=== PATIENT | male | born 1955 | race Caucasian/White ===

== ENCOUNTER 2016-09-23 08:03 | Emergency (ER) | payer OTHER ==
--- NOTE | 2016-09-23 10:25 | ER Document Report ---
ED General - General Chief Complaint: Leg Injury Stated Complaint: LEG PAIN TRAVEL OUTSIDE OF THE [place] IN LAST 30 DAYS: No - HPI Patient complains to provider of: left ankle pain Notes: Patient states came in today for evaluation of left lateral ankle pain. Patient certainly may have broken his ankle. Patient states yesterday was working at [employer]. Patient arrived in work boots ambulating on crutches. Patient states pain is only very severe when he ambulate with full weightbearing on his left leg. Patient denies any other injury denies any pain in the hip thigh knee or proximal tib-fib region. - Related Data Allergies/Adverse Reactions: Shellfish * [Shellfish] Allergy (Severe, Verified 09/23/16 08:15) Anaphylaxis iodine [Iodine] Allergy (Verified 09/23/16 08:15) Past Medical History - Social History Smoking Status: Unknown if Ever Smoked Chew tobacco use (# tins/day): No Frequency of alcohol use: None Drug Abuse: None Family History: Reviewed & Not Pertinent Patient has suicidal ideation: No Patient has homicidal ideation: No - Past Medical History Cardiac Medical History: Reports: Hx Hypercholesterolemia, Hx Pulmonary Embolism GI Medical History: Reports: Hx Gastroesophageal Reflux Disease Past Surgical History: Reports: Hx Orthopedic Surgery - 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 saw accident. - Immunizations Hx Diphtheria, Pertussis, Tetanus Vaccination: Yes Review of Systems - Review of Systems Constitutional: No symptoms reported EENT: No symptoms reported Cardiovascular: No symptoms reported Respiratory: No symptoms reported Gastrointestinal: No symptoms reported Genitourinary: No symptoms reported Male Genitourinary: No symptoms reported Musculoskeletal: Other - Left lateral ankle pain Skin: No symptoms reported Hematologic/Lymphatic: No symptoms reported Neurological/Psychological: No symptoms reported Physical Exam - Vital signs Vitals: Temp Pulse Resp BP Pulse Ox 97.5 F 65 16 117/62 96 09/23/16 08:15 09/23/16 08:15 09/23/16 08:15 09/23/16 08:15 09/23/16 08:15 Interpretation: Normal - General General appearance: Appears well, Alert - HEENT Head: Normocephalic, Atraumatic Eyes: Normal Pupils: PERRL - Respiratory Respiratory status: No respiratory distress Chest status: Nontender Breath sounds: Normal Chest palpation: Normal - Cardiovascular Rhythm: Regular Heart sounds: Normal auscultation Murmur: No - Abdominal Inspection: Normal Distension: No distension Bowel sounds: Normal Tenderness: Nontender Organomegaly: No organomegaly - Back Back: Normal, Nontender - Extremities General upper extremity: Nontender, Tender - Tenderness to palpation along the left lateral ankle, Normal color, Normal temperature. No: Normal ROM - Decreased range of motion of blood arrival due to pain General lower extremity: Normal inspection, Nontender, Normal color, Normal ROM , Normal temperature, Normal weight bearing. No: Adeola's sign - Neurological Neuro grossly intact: Yes Cognition: Normal Orientation: AAOx4 [place] Coma Scale Eye Opening: Spontaneous [place] Coma Scale Verbal: Oriented [place] Coma Scale Motor: Obeys Commands Berenice Coma Scale Total: 15 Speech: Normal Motor strength normal: LUE, RUE, LLE, RLE Sensory: Normal - Psychological Associated symptoms: Normal affect, Normal mood - Skin Skin Temperature: Warm Skin Moisture: Dry Skin Color: Normal Course - Re-evaluation Re-evalutation: 09/23/16 11:40 Patient has a distal fibula fracture. Patient will placed in a ankle stirrup. Patient's follow-up orthopedics. Patient discharged home. - Vital Signs Vital signs: Temp Pulse Resp BP Pulse Ox 97.5 F 65 16 117/62 96 09/23/16 08:15 09/23/16 08:15 09/23/16 08:20 09/23/16 08:15 09/23/16 08:15 Discharge - Discharge Clinical Impression: Left fibular fracture Qualifiers: Encounter type: initial encounter Fibula location: distal Fracture type: closed Fracture morphology: unspecified fracture morphology Qualified Code(s): S82.832A - Other fracture of upper and lower end of left fibula, initial encounter for closed fracture Condition: Good Disposition: HOME, SELF-CARE Instructions: Fracture of Distal Fibula ([facility]), Oral Narcotic Medication ([facility]), Ice & Elevation ([facility]) Additional Instructions: He may take pain medication for severe pain as prescribed. Return to ER symptoms worsen. Continue to take Tylenol Motrin for her pain ice and elevate. If you do take the narcotic pain medication prescribed will recommend taking a stool softener to avoid constipation Follow-up with orthopedic provided Dr. Bree Fraser [id number] [facility] unit [address] [place] [id number] Prescriptions: Hydrocodone Bit/Acetaminophen [Hydrocodon-Acetaminophen 5-325] 1 each PO Q6 #20 tablet Forms: Return to Work Referrals: LAVONNE HENRY MD [Primary Care Provider] - Follow up as needed LEAH LYNCH MD [ACTIVE STAFF] - Follow up as needed
[2016-09-23 11:47] VITALS: BP 120/63
== END 2016-09-23 10:55 | disposition home or self-care (01) ==
LOC: ER 08:03
DX: S82.832A Other fracture of upper and lower end of left fibula, initial encounter for closed fracture (principal); X58.XXXA Exposure to other specified factors, initial encounter; E78.00 Pure hypercholesterolemia, unspecified; Z86.711 Personal history of pulmonary embolism; Z91.013 Allergy to seafood
CPT/HCPCS: 99283; 73610; L1902

== ENCOUNTER 2016-10-09 16:31 | Inpatient (IN) | payer OTHER ==
[2016-10-09] MEDS ORDERED: LEVETIRACETAM 1000 MG/NACL-ISO 100 ML IV ONE ×2 (16:37→17:29)
[2016-10-09] MEDS ORDERED: LORAZEPAM INJ 2 MG/1 ML VIAL IV ONE (17:29)
[2016-10-09] MEDS ORDERED: NORMAL SALINE 1000 ML 1,000 ML IV ONE ×3 (17:30→21:31)
--- NOTE | 2016-10-09 17:54 | ER Document Report ---
ED Seizure - General Chief Complaint: Seizure Stated Complaint: SEISURE Notes: Pt presents via EMS found seizing outside. Old pill bottle in pocket is 3 day supply of Keppra from May 2016. Pt wearing a walking boot on left foot. He is unable to provide hx. EMS states they gave 4mg valium, 3 mg versed with only temporary improvement in seizure activity. - Related Data Allergies/Adverse Reactions: Shellfish * [Shellfish] Allergy (Severe, Verified 09/23/16 08:15) Anaphylaxis iodine [Iodine] Allergy (Verified 09/23/16 08:15) Past Medical History - Social History Smoking Status: Unknown if Ever Smoked Family History: Reviewed & Not Pertinent - Past Medical History Cardiac Medical History: Reports: Hx Hypercholesterolemia, Hx Pulmonary Embolism Renal/ Medical History: Denies: Hx Peritoneal Dialysis - unable to answer questions GI Medical History: Reports: Hx Gastroesophageal Reflux Disease Past Surgical History: Reports: Hx Orthopedic Surgery - 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 saw accident. - Immunizations Hx Diphtheria, Pertussis, Tetanus Vaccination: Yes Review of Systems - Review of Systems -: Yes ROS unobtainable due to patient's medical condition Physical Exam - Vital signs Vitals: Resp BP Pulse Ox 15 112/79 93 10/09/16 16:35 10/09/16 16:35 10/09/16 16:35 - General In distress: Mild Notes: presents actively seizing - HEENT Head: Other - old crani scar Extraocular movements intact: No - gaze deviation to the right Pupils: Pinpoint Mucous membranes: Normal Pharynx: Normal Neck: No: Lymphadenopathy, Meningismus, Subcutaneous emphysema - Respiratory Respiratory status: Tachypnea Breath sounds: Rhonchi - Cardiovascular Rhythm: Regular, Tachycardia - Abdominal Inspection: Normal Distension: No distension Tenderness: Nontender - Back Back: Normal - Extremities General upper extremity: Normal inspection General lower extremity: Normal strength - Skin Skin Temperature: Warm Skin Moisture: Dry Skin Color: Normal Course - Re-evaluation Re-evalutation: 10/09/16 17:53 Patient arrived by EMS, actively seizing. They had given 4 mg of Valium as well as 3 mg of Versed with only temporary abatement in the seizure activity. I gave another 3 mg total of Ativan as well as 100 of Keppra IV. He was bagged and had nasal trumpet and to maintain airway and oxygenation. This did seem to stop his seizure activity however he was noted to be flaccid on the left side. Head CT has been ordered for possible stroke versus David's paralysis. 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 Patient now following basic commands. He is still weak on the left side. Would not be a candidate for TPA due to unclear timeline of events, and hx of craniotomy in 2016. Pt has likely aspirated but is now protecting airway. I have discussed pt with Dr. Zamora who will admit. 10/09/16 19:51 - Vital Signs Vital signs: Temp Pulse Resp BP Pulse Ox 100.6 F H 123 H 22 H 112/87 H 96 10/09/16 17:09 10/09/16 17:25 10/09/16 18:51 10/09/16 18:51 10/09/16 18:51 - Laboratory Result Diagrams: 10/09/16 16:36 10/09/16 16:36 Laboratory results interpreted by me: 10/09/16 10/09/16 10/09/16 16:36 16:36 16:36 WBC 14.1 H MCHC 31.0 L RDW 14.4 H Seg Neutrophils % 81.0 H Absolute Neutrophils 11.4 H APTT 22.9 L Total Protein 8.3 H Urine Protein Urine Ketones Urine Blood Urine Nitrite Ur Leukocyte Esterase 10/09/16 18:36 WBC MCHC RDW Seg Neutrophils % Absolute Neutrophils APTT Total Protein Urine Protein 30 H Urine Ketones TRACE H Urine Blood LARGE H Urine Nitrite POSITIVE H Ur Leukocyte Esterase SMALL H - Diagnostic Test Radiology reviewed: Reports reviewed - chronic changes related to TBI Discharge - Discharge Clinical Impression: Seizure, David's paralysis Aspiration into respiratory tract Qualifiers: Encounter type: initial encounter Qualified Code(s): T17.908A - Unspecified foreign body in respiratory tract, part unspecified causing other injury, initial encounter Condition: Stable Disposition: ADMITTED INPATIENT Admitting Provider: Librado zamora Unit Admitted: [facility]
[2016-10-09 18:36] LABS: ABSOLUTE MONOCYTES (AUTO) 0.6 10^3/uL (0.1-1.4); ABSOLUTE NEUT (AUTO) 11.4 10^3/uL (1.7-8.2); BASOPHILS % (AUTO) 0.3 % (0-2); EOSINOPHILS % (AUTO) 0.3 % (0-6); HEMATOCRIT 45.3 % (37.9-51.0); HGB HCT DIFFERENCE -3.3; LYMPHOCYTES % (AUTO) 14.1 % (13-45); MEAN CORPUSCULAR HEMOGLOBIN 28.8 pg (27.0-33.4); MEAN CORPUSCULAR VOLUME 93 fl (80-97); MONOCYTES % (AUTO) 4.3 % (3-13); RED BLOOD COUNT 4.88 10^6/uL (4.35-5.55); RED CELL DISTRIBUTION WIDTH 14.4 % (11.5-14.0); WHITE BLOOD COUNT 14.1 10^3/uL (4.0-10.5)
[2016-10-09 18:43] LABS: PROTHROMBIN TIME 12.4 SEC (11.4-15.4)
[2016-10-09 18:44] LABS: PARTIAL THROMBOPLASTIN TIME 22.9 SEC (23.5-35.8)
[2016-10-09 18:51] LABS: ALANINE AMINOTRANSFERASE 31 U/L (21-72); ALBUMIN 4.7 g/dL (3.5-5.0); ALCOHOL < 10 mg/dL (NONE DETECTED); ALKALINE PHOSPHATASE 106 U/L (38-126); ANION GAP 19 (5-19); ASPARTATE AMINO TRANSFERASE 56 U/L (17-59); BILIRUBIN,TOTAL 0.6 mg/dL (0.2-1.3); BLOOD UREA NITROGEN 12 mg/dL (7-20); CALCIUM 9.3 mg/dL (8.4-10.2); CARBON DIOXIDE 23 mmol/L (22-30); CHLORIDE 103 mmol/L (98-107); CREATININE RESULT 1.19 mg/dL (0.52-1.25); GLUCOSE 99 mg/dL (75-110); POTASSIUM 4.2 mmol/L (3.6-5.0); SODIUM 144.5 mmol/L (137-145); TOTAL PROTEIN 8.3 g/dL (6.3-8.2)
[2016-10-09 18:55] LABS: APPEARANCE,URINE SLIGHTLY-CLOUDY; BILIRUBIN,URINE NEGATIVE (NEGATIVE); GLUCOSE, URINE NEGATIVE (NEGATIVE); KETONES,URINE TRACE mg/dL (NEGATIVE); LEUKOCYTE ESTERASE,URINE SMALL (NEGATIVE); NITRITE,URINE POSITIVE (NEGATIVE); PROTEIN,URINE 30 mg/dL (NEGATIVE); URINE SPECIFIC GRAVITY 1.013; UROBILINOGEN,URINE NEGATIVE mg/dL (<2.0)
[2016-10-09 19:10] LABS: URINE BARBITURATES SCREEN NEGATIVE; URINE METHADONE SCREEN NEGATIVE; URINE PHENCYCLIDINE SCREEN NEGATIVE
[2016-10-09] MEDS ORDERED: LORAZEPAM INJ 2 MG/1 ML VIAL IV PRN (21:31)
[2016-10-09] MEDS ORDERED: LEVETIRACETAM 500 MG TABLET PO SCH (22:00)
[2016-10-09] MEDS: LEVETIRACETAM 1000 MG/NACL-ISO 100 ML IV SCH (22:00)
[2016-10-09] MEDS: HEPARIN SOD (PORCINE) 5,000 UNIT/ML 1 ML SYRINGE SUBCUT SCH (22:08)
[2016-10-09] MEDS: LEVOFLOXACIN 750 MG/D5W RTU 750 MG/150 ML RTUPB IV SCH (23:27)
[2016-10-10] MEDS: IPRATROPIUM/ALBUTEROL 0.5-2.5 MG/3 ML AMPUL NEB SCH ×3 (00:07→16:29)
--- NOTE | 2016-10-10 04:04 | PDOC H&P ---
History of Present Illness Admission Date/PCP: 10/09/16 20:02 Patient complains of: Seizure History of Present Illness: ALEXANDRA NORRIS is a 61 year old male with a complex past medical history including bilateral pulmonary emboli subsequently sustaining traumatic brain injury and intracranial hemorrhage with residual deficits of left-sided weakness and seizure disorder. Found by EMS disheveled an actively seizing which persisted approximately 30 minutes despite 4mg of IV Valium, 3mg of IV Versed, 2 mg IV Ativan and 1 g IV Keppra. Remarkably he is without obvious acute injury although post ictal he is protecting his airway with a strong gag reflex, though minimally verbal and following commands. Workup in the emergency room reveals a fever of 100.6 and leukocytosis of 14,000. CT head and chest x-ray are unremarkable, and is referred to the hospitalist for admission. Past Medical History Cardiac Medical History: Reports: Hyperlipidema, Pulmonary Embolism Neurological Medical History: Reports: Seizures, Other - Traumatic brain injury , intracranial hemorrhage, left-sided weakness GI Medical History: Reports: Gastroesophageal Reflux Disease Past Surgical History Past Surgical History: Reports: Orthopedic Surgery - 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 saw accident., Other - Evidence a craniotomy Social History Information Source: [facility] Records Smoking Status: Unknown if Ever Smoked Frequency of Alcohol Use: None Hx Recreational Drug Use: No Hx Prescription Drug Abuse: No - Advance Directive Resuscitation Status: Full Code Family History Family History: Reviewed & Not Pertinent, Other - Unable to obtain Parental Family History Reviewed: Yes Children Family History Reviewed: Yes Sibling(s) Family History Reviewed.: Yes Medication/Allergy Home Medications: Omeprazole 20 mg PO DAILY 07/10/13 Warfarin Sodium [Coumadin 5 mg Tablet] 5 mg PO QHS #60 tablet 07/14/13 Ondansetron [Zofran Odt 4 mg Tablet] 1 - 2 tab PO Q4H PRN #15 tab.rapdis Oxycodone HCl/Acetaminophen [Percocet 5-325 mg Tablet] 1 - 2 tab PO Q4H PRN #15 tablet 06/26/14 Tamsulosin HCl [Flomax 0.4 mg Cap.sr] 0.4 mg PO DAILY #7 cap.sr.24h 06/26/14 Oxycodone HCl/Acetaminophen [Percocet 5-325 mg Tablet] 1 tab PO QID #15 tablet 07/22/15 Levetiracetam [Keppra 500 mg Tablet] 500 mg PO Q12 #60 tablet 04/03/16 Hydrocodone Bit/Acetaminophen [Hydrocodon-Acetaminophen 5-325] 1 each PO Q6 #20 tablet 09/23/16 Allergies/Adverse Reactions: Shellfish * [Shellfish] Allergy (Severe, Verified 09/23/16 08:15) Anaphylaxis iodine [Iodine] Allergy (Verified 09/23/16 08:15) Review of Systems ROS unobtainable: Due to mental status Physical Exam Vital Signs: Temp Pulse Resp BP Pulse Ox 97.7 F 108 H 24 H 128/93 H 96 10/10/16 01:14 10/10/16 02:33 10/10/16 02:33 10/10/16 02:33 10/10/16 02:33 General appearance: PRESENT: cooperative, disheveled, mild distress Head exam: PRESENT: other - No evidence of acute injury but history of craniotomy Eye exam: PRESENT: conjunctiva pink, EOMI, PERRLA. ABSENT: scleral icterus Ear exam: PRESENT: normal external ear exam Mouth exam: PRESENT: dry mucosa, neck supple, tongue midline. ABSENT: laceration Teeth exam: PRESENT: dental caries Neck exam: ABSENT: carotid bruit, JVD, lymphadenopathy, meningismus, tenderness , tracheal deviation Respiratory exam: PRESENT: accessory muscle use, rhonchi, symmetrical, tachypnea. ABSENT: retraction Cardiovascular exam: PRESENT: RRR. ABSENT: diastolic murmur, rubs, systolic murmur Pulses: PRESENT: normal dorsalis pedis pul Vascular exam: PRESENT: normal capillary refill GI/Abdominal exam: PRESENT: normal bowel sounds, soft. ABSENT: distended, guarding, mass, organolmegaly, rebound, tenderness Rectal exam: PRESENT: deferred Extremities exam: PRESENT: full ROM. ABSENT: calf tenderness, clubbing, pedal edema Musculoskeletal exam: PRESENT: other - Left-sided flaccid Neurological exam: PRESENT: altered, oriented to person, CN II-XII grossly intact. ABSENT: oriented to time, oriented to situation Psychiatric exam: PRESENT: flat affect Focused psych exam: PRESENT: other - Sedated Skin exam: PRESENT: dry, intact, warm. ABSENT: cyanosis, rash Results Impressions: Head CT 10/09/16 17:30 IMPRESSION: Mild chronic appearing changes as noted above. There are areas of apparent meningeal thickening in a couple focal calcifications in the right parietal region which appears stable when correlated with the previous study and is most consistent with the sequela of a subdural hematoma which was identified on the study of July 2015. There is some effacement of the cortical sulci in the right cerebral hemisphere as compared to the left which appears slightly more pronounced when correlated with the previous study. MRI may be of value for further evaluation. The previously described areas of encephalomalacia in the right anterior temporal lobe and left inferior frontal lobe appears stable. Other findings as noted above Chest X-Ray 10/09/16 19:42 IMPRESSION: NO ACUTE RADIOGRAPHIC FINDING IN THE CHEST. Assessment & Plan - Diagnosis (1) Seizure Is this a current diagnosis for this admission?: YesPlan: Prolonged seizure complicated by history of traumatic brain injury with intracranial hemorrhage, continue IV Keppra when necessary Ativan and supportive measures. (2) Aspiration into respiratory tract Qualifiers: Encounter type: initial encounter Qualified Code(s): T17.908A - Unspecified foreign body in respiratory tract, part unspecified causing other injury, initial encounter Is this a current diagnosis for this admission?: YesPlan: Patient has upper airway rhonchi that are proving difficult for the patient clear has a strong gag reflex with suctioning I'm concerned for aspiration and he will receive empiric antibiotics, albuterol Atrovent nebulizer, aspiration precautions and evaluation with chest x-ray (3) David's paralysis Is this a current diagnosis for this admission?: YesPlan: Multifactorial left-sided weakness clearly a record of residual left-sided weakness from traumatic brain injury, though I also suspect a David's paralysis as he has significant musculature without atrophy on the left side. Physical therapy evaluation considered - Time Time Spent: 50 to 70 Minutes
[2016-10-10 04:26] LABS: HEMATOCRIT 39.7 % (37.9-51.0); HEMOGLOBIN 12.9 g/dL (13.5-17.0); MEAN CORPUSCULAR HEMOGLOBIN 29.2 pg (27.0-33.4); MEAN CORPUSCULAR HGB CONC 32.4 g/dL (32.0-36.0); MEAN CORPUSCULAR VOLUME 90 fl (80-97); RED BLOOD COUNT 4.41 10^6/uL (4.35-5.55); RED CELL DISTRIBUTION WIDTH 13.9 % (11.5-14.0); WHITE BLOOD COUNT 13.8 10^3/uL (4.0-10.5)
[2016-10-10 04:49] LABS: ANION GAP 12 (5-19); BLOOD UREA NITROGEN 13 mg/dL (7-20); CALCIUM 9.3 mg/dL (8.4-10.2); CARBON DIOXIDE 22 mmol/L (22-30); CHLORIDE 107 mmol/L (98-107); CREATININE RESULT 0.81 mg/dL (0.52-1.25); GLUCOSE 132 mg/dL (75-110); POTASSIUM 4.6 mmol/L (3.6-5.0); SODIUM 141.2 mmol/L (137-145)
[2016-10-10 04:52] LABS: BAND NEUTROPHILS % (MANUAL) 3 % (3-5); BASOPHILS % (MANUAL) 0 % (0-2); EOSINOPHILS % (MANUAL) 0 % (0-6); LYMPHOCYTES % (MANUAL) 4 % (13-45); TOTAL CELLS COUNTED 100
[2016-10-10 04:53] LABS: RBC MORPHOLOGY COMMENT NORMO-CYTIC/CHROMIC
[2016-10-10] MEDS: HEPARIN SOD (PORCINE) 5,000 UNIT/ML 1 ML SYRINGE SUBCUT SCH ×3 (05:37→21:50)
--- NOTE | 2016-10-10 09:17 | PDOC PROGRESS REPORT ---
Subjective Progress Note for:: 10/10/16 Subjective:: Normal reported seizures. Patient does not verbalize so much. No reported respiratory distress but remain on the facemask. No nausea or vomiting. No temperature spikes. No reported diarrhea or any urinary incontinence. Physical Exam Vital Signs: Temp Pulse Resp BP Pulse Ox 99.8 F 109 H 26 H 129/95 H 93 10/10/16 08:50 10/10/16 08:00 10/10/16 08:50 10/10/16 08:50 10/10/16 08:50 Intake & Output 10/09/16 10/10/16 10/11/16 06:59 06:59 06:59 Output Total 950 Balance -950 General appearance: PRESENT: no acute distress, other - Calm, does not verbalize much at this time Head exam: PRESENT: normocephalic Eye exam: PRESENT: conjunctiva pink. ABSENT: scleral icterus Mouth exam: PRESENT: moist, neck supple Neck exam: ABSENT: carotid bruit, JVD Respiratory exam: PRESENT: rhonchi - Right side. ABSENT: wheezes Cardiovascular exam: PRESENT: RRR. ABSENT: gallop GI/Abdominal exam: PRESENT: hypoactive bowel sounds, soft. ABSENT: distended, tenderness Extremities exam: ABSENT: pedal edema Psychiatric exam: ABSENT: agitated Focused psych exam: ABSENT: restlessness Skin exam: PRESENT: dry, warm. ABSENT: cyanosis Results Laboratory Results: 10/10/16 03:37 10/10/16 03:37 10/10/16 10/10/16 03:37 03:37 WBC 13.8 H RBC 4.41 Hgb 12.9 L Hct 39.7 MCV 90 MCH 29.2 MCHC 32.4 RDW 13.9 Plt Count 262 Seg Neutrophils % Not Reportable Lymphocytes % Not Reportable Monocytes % Not Reportable Eosinophils % Not Reportable Basophils % Not Reportable Absolute Neutrophils Not Reportable Absolute Lymphocytes Not Reportable Absolute Monocytes Not Reportable Absolute Eosinophils Not Reportable Absolute Basophils Not Reportable Sodium 141.2 Potassium 4.6 Chloride 107 Carbon Dioxide 22 Anion Gap 12 BUN 13 Creatinine 0.81 Est GFR ( Amer) > 60 Est GFR (Non-Af Amer) > 60 Glucose 132 H Calcium 9.3 Impressions: Head CT 10/09/16 17:30 IMPRESSION: Mild chronic appearing changes as noted above. There are areas of apparent meningeal thickening in a couple focal calcifications in the right parietal region which appears stable when correlated with the previous study and is most consistent with the sequela of a subdural hematoma which was identified on the study of July 2015. There is some effacement of the cortical sulci in the right cerebral hemisphere as compared to the left which appears slightly more pronounced when correlated with the previous study. MRI may be of value for further evaluation. The previously described areas of encephalomalacia in the right anterior temporal lobe and left inferior frontal lobe appears stable. Other findings as noted above Chest X-Ray 10/09/16 19:42 IMPRESSION: NO ACUTE RADIOGRAPHIC FINDING IN THE CHEST. Assessment & Plan - Diagnosis (1) Seizure Is this a current diagnosis for this admission?: Yes (2) UTI (urinary tract infection) Qualifiers: Urinary tract infection type: site unspecified Hematuria presence: without hematuria Qualified Code(s): N39.0 - Urinary tract infection, site not specified Is this a current diagnosis for this admission?: Yes (3) Chronic subdural hematoma Is this a current diagnosis for this admission?: Yes (4) Hyperlipidemia Qualifiers: Hyperlipidemia type: unspecified Qualified Code(s): E78.5 - Hyperlipidemia, unspecified Is this a current diagnosis for this admission?: Yes (5) GERD (gastroesophageal reflux disease) Qualifiers: Esophagitis presence: without esophagitis Qualified Code(s): K21.9 - Gastro-esophageal reflux disease without esophagitis Is this a current diagnosis for this admission?: Yes (6) History of pulmonary embolism Is this a current diagnosis for this admission?: Yes (7) History of intracranial hemorrhage Is this a current diagnosis for this admission?: Yes (8) Traumatic brain injury Qualifiers: Encounter type: sequela Loss of consciousness presence/duration: with LOC of unspecified duration Qualified Code(s): S06.9X9S - Unspecified intracranial injury with loss of consciousness of unspecified duration, sequela Is this a current diagnosis for this admission?: Yes - Time Time Spent with patient: 25-34 minutes - Plan Summary Plan Summary: Continue gentle hydration. Begin antibiotic. Follow urine culture. Recheck chest x-ray in the morning, may have aspirated. Continue oxygen supplementation. Patient supposed to be on warfarin at home by the PT/INR is normal likely may have been discontinued or not taking the medication. Continue intravenous Keppra for now.
[2016-10-10] MEDS: TAMSULOSIN HCL 0.4 MG CAP.SR.24H PO SCH (11:41)
[2016-10-10] MEDS: DOCUSATE SODIUM 100 MG CAPSULE PO SCH ×2 (11:41→17:57)
--- NOTE | 2016-10-10 11:43 | EKG REPORT ---
SEVERITY:- OTHERWISE NORMAL ECG - SINUS TACHYCARDIA : Confirmed by: Delmi Dockery MD 10-Oct-2016 11:42:22
[2016-10-10] MEDS: ACETAMINOPHEN 650 MG SUPP.RECT PR PRN (11:59)
[2016-10-10] MEDS ORDERED: LEVETIRACETAM 1000 MG/NACL-ISO 1,000 MG/100 ML RTUPB IV ONE (12:00)
[2016-10-10] MEDS: LEVETIRACETAM 1000 MG/NACL-ISO 100 ML IV SCH ×2 (12:17→21:50)
--- NOTE | 2016-10-10 16:22 | Physician Advisory Note ---
Physician Advisor ProgressNote .: Pursuant to the plan for [facility], I have reviewed the medical record for this patient. Physician Advisor Statement: Possible documentation opportunities if attending agrees: 1.~ ? - "chronic Lt hemiparesis, due to ____" 2.~ "SIRS, present on admission due to aspiration pneumonitis + prolonged seizure" [or ....] - vs. "possible sepsis, present on admission, due to aspiration pneumonia, despite neg BCs, ruled out/in" 3.~ If pt develops increased work of breathing along with hypoxemia, please consider documenting details w/"Acute Respiratory Failure" dx. As always, if concerned about any unstable VS or abnormal labs,~ please comment on them & note what doing about them, & ~ please document each day the potential clinical problems you are concerned could occur if pt not kept in hospital for tx at this time. Status:~ Pt w/ TBI, past ICH w/resid lt hemiparesis & sz d/o, past bilat PE, who came in 10/09 PM with prolonged sz, noted at time of H&P to have dry mucosae, mild distress, dental caries, accessory muscle use, tachypnea, rhonchi, & was sedated , w/T100.6, HR 108, RR24, WBC 14. CT & CXR neg, but timing & decreased circulating volume could have been why neg then. Attending concerned for aspiration pneumonitis vs aspir PNA. Pt also w/anemia, hgb 12.9, (+) U/A. Attending appropriately ordered IV KEppra, prn ativan, abx, nebs, aspir prec.s. After 1 MN of care, pt has fever w/Tmax today so far 101.1, with persistent tachycardia >100, persistent tachypnea mid-20s, & episodes of hypoxemia as low as 89% on RA. Still significant leukocytosis. Pt is most certainly not hemodynamically stable for d/c today, clearly needs to continue IV abx with f/u cx & monitoring of response, f/u CXR, O2, etc. IVF may help bring out CXR findings as well as hydrate. Tx in inpatient hospital setting medically reasonable & necessary to protect pt' s health, safety, & medical condition. Appropriate for Inpt status. Thanks for your help with documentation accuracy/specificity improvement! Korina Whipple MD [facility] Physician Advisor, Fellow of Hospital Medicine
--- NOTE | 2016-10-10 16:41 | PDOC TRANSFER SUMMARY ---
General Admission Date/PCP: 10/09/16 21:23 Admission Date: 10/09/16 Transfer Date: 10/10/16 Accepting Facility: [facility] Accepting Physician: Dr. Noah Carson Resuscitation Status: Full Code - Transfer Diagnosis (1) Seizure Is this a current diagnosis for this admission?: Yes (2) UTI (urinary tract infection) Is this a current diagnosis for this admission?: Yes (3) Chronic subdural hematoma Is this a current diagnosis for this admission?: Yes (4) Hyperlipidemia Is this a current diagnosis for this admission?: Yes (5) GERD (gastroesophageal reflux disease) Is this a current diagnosis for this admission?: Yes (6) History of pulmonary embolism Is this a current diagnosis for this admission?: Yes (7) History of intracranial hemorrhage Is this a current diagnosis for this admission?: Yes (8) Traumatic brain injury Is this a current diagnosis for this admission?: Yes - Transfer Medications Transfer Medications: Current Medications Acetaminophen (Tylenol 650 Mg Supp) 650 mg MA Q4HP PRN Stop: 11/09/16 11:38 Last Admin: 10/10/16 11:59 Dose: 650 mg Albuterol/Ipratropium (Duoneb 3 Ml Ampul) 3 ml NEB RTQ8 GISEL Stop: 11/09/16 00:00 Last Admin: 10/10/16 16:29 Dose: 3 ml Docusate Sodium (Colace 100 Mg Capsule) 100 mg PO BID GISEL Stop: 11/09/16 09:59 Last Admin: 10/10/16 11:41 Dose: Not Given Heparin Sodium (Porcine) (Heparin Inj 5,000 Units/Ml 1 Ml Syringe) 5,000 unit SUBCUT Q8 GISEL Stop: 11/08/16 21:59 Last Admin: 10/10/16 05:37 Dose: 5,000 unit Levetiracetam (Keppra Rtu 1000 Mg/Nacl-Iso 100 Ml Premix) 100 mls @ 400 mls/hr IV Q12 GISEL Stop: 11/08/16 21:59 Last Admin: 10/10/16 12:17 Dose: Not Given Levofloxacin/Dextrose (Levaquin Rtu 750 Mg/D5w 150 Ml Premix) 750 mg in 150 mls @ 100 mls/hr IV QHS GISEL Stop: 10/16/16 21:59 Last Admin: 10/09/16 23:27 Dose: 150 ml Clindamycin Phosphate/Dextrose (Cleocin Rtu 600 Mg/D5w 50 Ml Premix) 50 mls @ 50 mls/hr IV Q8 [facility] Stop: 10/17/16 16:44 Lorazepam (Ativan Inj 2 Mg/1 Ml Vial) 2 mg IV Q2HP PRN PRN Reason: SEIZURES Stop: 10/16/16 21:30 Tamsulosin HCl (Flomax 0.4 Mg Cap.Sr) 0.4 mg PO DAILY GISEL Stop: 11/09/16 09:59 Last Admin: 10/10/16 11:41 Dose: Not Given Aspirin 300 mg suppository daily. - Allergies Allergies/Adverse Reactions: Shellfish * [Shellfish] Allergy (Severe, Verified 09/23/16 08:15) Anaphylaxis iodine [Iodine] Allergy (Verified 09/23/16 08:15) - Diet/Activity Discharge Diet: Other (Comments) - NPO except medications. Hospital Course Hospital Course: The patient was admitted to telemetry. The patient was begun on intravenous Keppra 1000 mg IV twice a day. The patient received multiple doses of benzodiazepine in the field and in the emergency room. He started to develop fever and clindamycin added to the patient's antibiotics intravenously. Chest x -ray however did not reveal any infiltrates. His lung sounds however are coarse. His mental status improved with no seizures however post ictal state is prolonged. Family is concerned and requesting patient be transferred to [facility] as he has PROCEDURES and records at the facility. An EEG was performed but result is pending. There is no neurologist wardrobe image consultant for the hospital. At this point, [facility] was contacted, Dr. Carson from the hospitalist service responded and accepted the patient. The patient mental status improved however still with significant weakness reported with swallowing difficulty. MRI of the brain was obtained and reportedly showing a recent stroke with associated edema. Speech therapy evaluated the patient and MBS was done, patient high risk for aspiration and recommended alternate means of feeding at this time. A nasogastric tube was therefore placed. Carotid Doppler showed no hemodynamically significant stenosis and echocardiogram was done but result is PND. Follow up chest x-ray did confirm the infiltrate suggestive of aspiration. His urine culture grew Klebsiella. The patient has been on antibiotic intravenously to cover for both UTI and aspiration. Antiplatelet therapy was begun as well. Physical Exam Vital Signs: Temp Pulse Resp BP Pulse Ox 100.3 F 110 H 29 H 134/92 H 93 10/10/16 15:01 10/10/16 12:00 10/10/16 15:01 10/10/16 15:01 10/10/16 15:07 Intake & Output 10/09/16 10/10/16 10/11/16 06:59 06:59 06:59 Output Total 950 Balance -950 General appearance: PRESENT: no acute distress, other - On facemask oxygen supplementation Head exam: PRESENT: normocephalic Eye exam: PRESENT: EOMI - Seems to be intact. ABSENT: nystagmus Ear exam: PRESENT: normal external ear exam. ABSENT: drainage Mouth exam: PRESENT: moist, neck supple Neck exam: ABSENT: JVD Respiratory exam: PRESENT: rhonchi - Right more than the left. ABSENT: wheezes Cardiovascular exam: PRESENT: RRR. ABSENT: gallop GI/Abdominal exam: PRESENT: normal bowel sounds, soft. ABSENT: distended, tenderness Extremities exam: ABSENT: pedal edema Neurological exam: PRESENT: altered - Arousable but responded only in words. Psychiatric exam: ABSENT: agitated Focused psych exam: ABSENT: restlessness Skin exam: PRESENT: dry, warm. ABSENT: cyanosis Results Laboratory Results: 10/10/16 03:37 10/10/16 03:37 10/10/16 10/10/16 03:37 03:37 WBC 13.8 H RBC 4.41 Hgb 12.9 L Hct 39.7 MCV 90 MCH 29.2 MCHC 32.4 RDW 13.9 Plt Count 262 Seg Neutrophils % Not Reportable Lymphocytes % Not Reportable Monocytes % Not Reportable Eosinophils % Not Reportable Basophils % Not Reportable Absolute Neutrophils Not Reportable Absolute Lymphocytes Not Reportable Absolute Monocytes Not Reportable Absolute Eosinophils Not Reportable Absolute Basophils Not Reportable Sodium 141.2 Potassium 4.6 Chloride 107 Carbon Dioxide 22 Anion Gap 12 BUN 13 Creatinine 0.81 Est GFR ( Amer) > 60 Est GFR (Non-Af Amer) > 60 Glucose 132 H Calcium 9.3 Impressions: Head CT 10/09/16 17:30 IMPRESSION: Mild chronic appearing changes as noted above. There are areas of apparent meningeal thickening in a couple focal calcifications in the right parietal region which appears stable when correlated with the previous study and is most consistent with the sequela of a subdural hematoma which was identified on the study of July 2015. There is some effacement of the cortical sulci in the right cerebral hemisphere as compared to the left which appears slightly more pronounced when correlated with the previous study. MRI may be of value for further evaluation. The previously described areas of encephalomalacia in the right anterior temporal lobe and left inferior frontal lobe appears stable. Other findings as noted above Chest X-Ray 10/09/16 19:42 IMPRESSION: NO ACUTE RADIOGRAPHIC FINDING IN THE CHEST. Plan Discharge Plan: Transferred to [facility] for further urological evaluation and management. Time Spent: Less than 30 Minutes
[2016-10-10] MEDS ORDERED: CLINDAMYCIN 600 MG/D5W RTU 600 MG/50 ML RTUPB IV ONE (17:00)
[2016-10-10] MEDS ORDERED: INFLUENZA ADLT QUAD (36MOS+) 2016-17 VAC 0.5 ML SYR IM PRN (18:52)
[2016-10-10] MEDS: LEVOFLOXACIN 750 MG/D5W RTU 750 MG/150 ML RTUPB IV SCH (21:50)
[2016-10-10] MEDS ORDERED: CLINDAMYCIN 600 MG/D5W RTU 600 MG/50 ML RTUPB IV SCH (22:00)
[2016-10-11] MEDS: IPRATROPIUM/ALBUTEROL 0.5-2.5 MG/3 ML AMPUL NEB SCH ×3 (00:40→16:50)
[2016-10-11] MEDS: CLINDAMYCIN 600 MG/D5W RTU 600 MG/50 ML RTUPB IV SCH ×3 (02:57→18:00)
[2016-10-11] MEDS: HEPARIN SOD (PORCINE) 5,000 UNIT/ML 1 ML SYRINGE SUBCUT SCH ×3 (06:12→21:54)
[2016-10-11] MEDS: ACETAMINOPHEN 650 MG SUPP.RECT PR PRN (06:31)
[2016-10-11 06:39] LABS: ABSOLUTE LYMPHOCYTES (AUTO) 0.6 10^3/uL (0.5-4.7); ABSOLUTE MONOCYTES (AUTO) 0.7 10^3/uL (0.1-1.4); ABSOLUTE NEUT (AUTO) 9.3 10^3/uL (1.7-8.2); BASOPHILS % (AUTO) 0.1 % (0-2); HEMATOCRIT 38.8 % (37.9-51.0); HEMOGLOBIN 12.7 g/dL (13.5-17.0); HGB HCT DIFFERENCE -0.7; LYMPHOCYTES % (AUTO) 5.8 % (13-45); MEAN CORPUSCULAR HEMOGLOBIN 29.3 pg (27.0-33.4); MEAN CORPUSCULAR HGB CONC 32.8 g/dL (32.0-36.0); MEAN CORPUSCULAR VOLUME 90 fl (80-97); MONOCYTES % (AUTO) 6.3 % (3-13); RED BLOOD COUNT 4.34 10^6/uL (4.35-5.55); RED CELL DISTRIBUTION WIDTH 14.2 % (11.5-14.0); SEGMENTED NEUTROPHILS % (AUTO) 87.8 % (42-78); WHITE BLOOD COUNT 10.6 10^3/uL (4.0-10.5)
[2016-10-11 06:52] LABS: ANION GAP 11 (5-19); BLOOD UREA NITROGEN 15 mg/dL (7-20); CALCIUM 9.6 mg/dL (8.4-10.2); CARBON DIOXIDE 24 mmol/L (22-30); CHLORIDE 103 mmol/L (98-107); CREATININE RESULT 0.77 mg/dL (0.52-1.25); GLUCOSE 107 mg/dL (75-110); POTASSIUM 4.3 mmol/L (3.6-5.0); SODIUM 138.1 mmol/L (137-145)
[2016-10-11] MEDS: LEVETIRACETAM 1000 MG/NACL-ISO 100 ML IV SCH ×2 (09:18→21:47)
--- NOTE | 2016-10-11 09:31 | PDOC PROGRESS REPORT ---
Subjective Progress Note for:: 10/11/16 Subjective:: Patient is more awake this morning. However he would only talk in speaking one- word. Patient unable to move generally but reportedly left-sided is worse. No reported seizure episode. Still with fever. Physical Exam Vital Signs: Temp Pulse Resp BP Pulse Ox 98.5 F 112 H 18 136/82 H 93 10/11/16 07:36 10/11/16 08:00 10/11/16 08:00 10/11/16 08:00 10/11/16 08:00 Intake & Output 10/10/16 10/11/16 10/12/16 06:59 06:59 06:59 Intake Total 138 Output Total 950 825 Balance -950 -687 Weight 85.2 kg General appearance: PRESENT: no acute distress, cooperative Head exam: PRESENT: normocephalic Eye exam: PRESENT: EOMI Ear exam: ABSENT: drainage Mouth exam: PRESENT: moist, neck supple Respiratory exam: PRESENT: rhonchi - Occasionally bilateral Cardiovascular exam: PRESENT: RRR. ABSENT: gallop GI/Abdominal exam: PRESENT: soft. ABSENT: distended, tenderness Extremities exam: ABSENT: pedal edema Neurological exam: PRESENT: alert, awake Skin exam: PRESENT: dry, warm. ABSENT: cyanosis Results Laboratory Results: 10/11/16 06:17 10/11/16 06:17 10/11/16 10/11/16 06:17 06:17 WBC 10.6 H RBC 4.34 L Hgb 12.7 L Hct 38.8 MCV 90 MCH 29.3 MCHC 32.8 RDW 14.2 H Plt Count 251 Seg Neutrophils % 87.8 H Lymphocytes % 5.8 L Monocytes % 6.3 Eosinophils % 0.0 Basophils % 0.1 Absolute Neutrophils 9.3 H Absolute Lymphocytes 0.6 Absolute Monocytes 0.7 Absolute Eosinophils 0.0 Absolute Basophils 0.0 Sodium 138.1 Potassium 4.3 Chloride 103 Carbon Dioxide 24 Anion Gap 11 BUN 15 Creatinine 0.77 Est GFR ( Amer) > 60 Est GFR (Non-Af Amer) > 60 Glucose 107 Calcium 9.6 Impressions: Head CT 10/09/16 17:30 IMPRESSION: Mild chronic appearing changes as noted above. There are areas of apparent meningeal thickening in a couple focal calcifications in the right parietal region which appears stable when correlated with the previous study and is most consistent with the sequela of a subdural hematoma which was identified on the study of July 2015. There is some effacement of the cortical sulci in the right cerebral hemisphere as compared to the left which appears slightly more pronounced when correlated with the previous study. MRI may be of value for further evaluation. The previously described areas of encephalomalacia in the right anterior temporal lobe and left inferior frontal lobe appears stable. Other findings as noted above Chest X-Ray 10/09/16 19:42 IMPRESSION: NO ACUTE RADIOGRAPHIC FINDING IN THE CHEST. Assessment & Plan - Diagnosis (1) Seizure Is this a current diagnosis for this admission?: Yes (2) UTI (urinary tract infection) Qualifiers: Urinary tract infection type: site unspecified Hematuria presence: without hematuria Qualified Code(s): N39.0 - Urinary tract infection, site not specified Is this a current diagnosis for this admission?: Yes (3) Chronic subdural hematoma Is this a current diagnosis for this admission?: Yes (4) Hyperlipidemia Qualifiers: Hyperlipidemia type: unspecified Qualified Code(s): E78.5 - Hyperlipidemia, unspecified Is this a current diagnosis for this admission?: Yes (5) GERD (gastroesophageal reflux disease) Qualifiers: Esophagitis presence: without esophagitis Qualified Code(s): K21.9 - Gastro-esophageal reflux disease without esophagitis Is this a current diagnosis for this admission?: Yes (6) History of pulmonary embolism Is this a current diagnosis for this admission?: Yes (7) History of intracranial hemorrhage Is this a current diagnosis for this admission?: Yes (8) Traumatic brain injury Qualifiers: Encounter type: sequela Loss of consciousness presence/duration: with LOC of unspecified duration Qualified Code(s): S06.9X9S - Unspecified intracranial injury with loss of consciousness of unspecified duration, sequela Is this a current diagnosis for this admission?: Yes - Time Time Spent with patient: 15-24 minutes Anticipated discharge: [facility] Within: within 24 hours - Plan Summary Plan Summary: Patient has been accepted in [facility]. Awaiting hospital bed. In the meantime we will have speech therapy evaluate the patient. We will obtain an MRI of the brain without contrast. We will get physical therapy get involved as well. Begin aspirin. Continue Keppra. Continue IV antibiotics. Follow-up chest x-ray.
[2016-10-11] MEDS: DOCUSATE SODIUM 100 MG CAPSULE PO SCH ×2 (12:23→18:00)
[2016-10-11] MEDS: TAMSULOSIN HCL 0.4 MG CAP.SR.24H PO SCH (12:23)
[2016-10-11] MEDS: ASPIRIN 300 MG SUPP, RECTAL PR SCH (12:29)
[2016-10-11] MEDS ORDERED: PHARMACY COMMUNICATION ORDER MC NR (16:00)
[2016-10-11] MEDS: LEVOFLOXACIN 750 MG/D5W RTU 750 MG/150 ML RTUPB IV SCH (21:51)
[2016-10-12] MEDS: IPRATROPIUM/ALBUTEROL 0.5-2.5 MG/3 ML AMPUL NEB SCH ×2 (00:27→08:24)
[2016-10-12] MEDS: CLINDAMYCIN 600 MG/D5W RTU 600 MG/50 ML RTUPB IV SCH ×2 (01:37→10:51)
[2016-10-12] MEDS: HEPARIN SOD (PORCINE) 5,000 UNIT/ML 1 ML SYRINGE SUBCUT SCH (05:33)
[2016-10-12 06:29] LABS: ABSOLUTE MONOCYTES (AUTO) 0.6 10^3/uL (0.1-1.4); ABSOLUTE NEUT (AUTO) 6.2 10^3/uL (1.7-8.2); BASOPHILS % (AUTO) 0.1 % (0-2); HEMATOCRIT 38.1 % (37.9-51.0); HEMOGLOBIN 12.1 g/dL (13.5-17.0); HGB HCT DIFFERENCE -1.8; LYMPHOCYTES % (AUTO) 12.7 % (13-45); MEAN CORPUSCULAR HEMOGLOBIN 28.6 pg (27.0-33.4); MEAN CORPUSCULAR HGB CONC 31.7 g/dL (32.0-36.0); MEAN CORPUSCULAR VOLUME 90 fl (80-97); MONOCYTES % (AUTO) 7.4 % (3-13); RED BLOOD COUNT 4.22 10^6/uL (4.35-5.55); RED CELL DISTRIBUTION WIDTH 14.6 % (11.5-14.0); SEGMENTED NEUTROPHILS % (AUTO) 79.8 % (42-78); WHITE BLOOD COUNT 7.8 10^3/uL (4.0-10.5)
[2016-10-12 06:51] LABS: ANION GAP 12 (5-19); BLOOD UREA NITROGEN 17 mg/dL (7-20); CALCIUM 9.3 mg/dL (8.4-10.2); CARBON DIOXIDE 24 mmol/L (22-30); CHLORIDE 105 mmol/L (98-107); GLUCOSE 93 mg/dL (75-110); POTASSIUM 4.2 mmol/L (3.6-5.0)
--- NOTE | 2016-10-12 08:07 | EEG PRO FEE REPORT ---
EEG INTERPRETATION PATIENT NAME: ALEXANDRA NORRIS ROOM#: [id number] ORDER#: [id number] DATE OF STUDY: 10/10/16 : 1955 REFERRING MD: EMIL MOLINA M.D. REPORT The background activity is slow at 4-5 Hz mixed theta and delta throughout and is of high voltage, but fairly uniform. It is unimorphic for the most part. More forward, the record goes to maybe 5-6 Hz of lesser amplitude. IMPRESSION Very abnormal EEG indicative of widespread cerebral dysfunction such as from a toxic, metabolic, or other generalized cause of cerebral dysfunction. INTERPRETING PHYSICIAN: BONY HUDDLESTON M.D. /: [facility] TT: [id number] ID: [id number] /: [id number] TD: [id number] JOB: [id number] cc:Ceci DOMINGUEZ M.D. >
--- NOTE | 2016-10-12 09:10 | PDOC PROGRESS REPORT ---
Subjective Progress Note for:: 10/12/16 Subjective:: Patient is more awake this morning and able to respond more. Patient unable to move left-sided which is unchanged. No reported seizure episode. Fever resolved. No diarrhea. Evaluated by speech therapy yesterday. Pressure feedings being considered. Nasogastric tube placement recommended. Still waiting for bed at [facility]. Physical Exam Vital Signs: Temp Pulse Resp BP Pulse Ox 99.0 F 83 18 120/84 96 10/12/16 07:12 10/12/16 08:25 10/12/16 08:25 10/12/16 08:00 10/12/16 08:25 Intake & Output 10/11/16 10/12/16 10/13/16 06:59 06:59 06:59 Intake Total 138 506 Output Total 825 1400 Balance -687 -894 Weight 85.2 kg 128.5 kg General appearance: PRESENT: no acute distress, cooperative Head exam: PRESENT: normocephalic Eye exam: PRESENT: conjunctiva pink Mouth exam: PRESENT: moist, neck supple Neck exam: ABSENT: JVD Respiratory exam: PRESENT: clear to auscultation [place]. ABSENT: rhonchi Cardiovascular exam: PRESENT: RRR. ABSENT: gallop GI/Abdominal exam: PRESENT: hypoactive bowel sounds, soft. ABSENT: distended, tenderness Extremities exam: PRESENT: other - Lower extremity splint on the left. ABSENT: pedal edema Neurological exam: PRESENT: alert, awake, other - Left-sided hemiparesis Psychiatric exam: PRESENT: flat affect Skin exam: PRESENT: dry, warm. ABSENT: cyanosis Results Laboratory Results: 10/12/16 06:14 10/12/16 06:14 10/12/16 10/12/16 06:14 06:14 WBC 7.8 RBC 4.22 L Hgb 12.1 L Hct 38.1 MCV 90 MCH 28.6 MCHC 31.7 L RDW 14.6 H Plt Count 260 Seg Neutrophils % 79.8 H Lymphocytes % 12.7 L Monocytes % 7.4 Eosinophils % 0.0 Basophils % 0.1 Absolute Neutrophils 6.2 Absolute Lymphocytes 1.0 Absolute Monocytes 0.6 Absolute Eosinophils 0.0 Absolute Basophils 0.0 Sodium 141.0 Potassium 4.2 Chloride 105 Carbon Dioxide 24 Anion Gap 12 BUN 17 Creatinine 0.70 Est GFR ( Amer) > 60 Est GFR (Non-Af Amer) > 60 Glucose 93 Calcium 9.3 Impressions: Head CT 10/09/16 17:30 IMPRESSION: Mild chronic appearing changes as noted above. There are areas of apparent meningeal thickening in a couple focal calcifications in the right parietal region which appears stable when correlated with the previous study and is most consistent with the sequela of a subdural hematoma which was identified on the study of July 2015. There is some effacement of the cortical sulci in the right cerebral hemisphere as compared to the left which appears slightly more pronounced when correlated with the previous study. MRI may be of value for further evaluation. The previously described areas of encephalomalacia in the right anterior temporal lobe and left inferior frontal lobe appears stable. Other findings as noted above Head MRI 10/11/16 00:00 IMPRESSION: 1. Recent right MCA distribution infarct. Associated gyral thickening and edema and restricted diffusion. Chest X-Ray 10/11/16 06:00 IMPRESSION: Patchy pneumonic infiltrate in the right lung base. KUB X-Ray 10/11/16 15:47 IMPRESSION: Nasogastric catheter tip projects over the antral region of the stomach. Assessment & Plan - Diagnosis (1) Stroke Qualifiers: CVA mechanism: unspecified Qualified Code(s): I63.9 - Cerebral infarction, unspecified Is this a current diagnosis for this admission?: Yes (2) Seizure Is this a current diagnosis for this admission?: Yes (3) Aspiration into respiratory tract Qualifiers: Encounter type: initial encounter Qualified Code(s): T17.908A - Unspecified foreign body in respiratory tract, part unspecified causing other injury, initial encounter Is this a current diagnosis for this admission?: Yes (4) UTI (urinary tract infection) Qualifiers: Urinary tract infection type: site unspecified Hematuria presence: without hematuria Qualified Code(s): N39.0 - Urinary tract infection, site not specified Is this a current diagnosis for this admission?: Yes (5) Chronic subdural hematoma Is this a current diagnosis for this admission?: Yes (6) Hyperlipidemia Qualifiers: Hyperlipidemia type: unspecified Qualified Code(s): E78.5 - Hyperlipidemia, unspecified Is this a current diagnosis for this admission?: Yes (7) GERD (gastroesophageal reflux disease) Qualifiers: Esophagitis presence: without esophagitis Qualified Code(s): K21.9 - Gastro-esophageal reflux disease without esophagitis Is this a current diagnosis for this admission?: Yes (8) History of pulmonary embolism Is this a current diagnosis for this admission?: Yes (9) History of intracranial hemorrhage Is this a current diagnosis for this admission?: Yes (10) Traumatic brain injury Qualifiers: Encounter type: sequela Loss of consciousness presence/duration: with LOC of unspecified duration Qualified Code(s): S06.9X9S - Unspecified intracranial injury with loss of consciousness of unspecified duration, sequela Is this a current diagnosis for this admission?: Yes (11) Ankle fracture, left Qualifiers: Encounter type: subsequent encounter Fracture type: closed Is this a current diagnosis for this admission?: Yes - Time Time Spent with patient: 25-34 minutes - Plan Summary Plan Summary: Carotid Doppler and 2-D echocardiogram. Modified barium swallow. EEG did not reveal any seizure activity. Continue antiplatelet therapy. Awaiting results of workups. Awaiting bed at [facility]. Physical therapy. Nasogastric tube has been placed. We will begin feedings after MBS completed.
[2016-10-12 09:38] LABS: CHOLESTEROL 186.76 mg/dL (0-200); Direct HDL 65 mg/dL (>40); TRIGLYCERIDES 102 mg/dL (<150)
--- NOTE | 2016-10-12 09:39 | ST Inp Modified Barium Swallow ---
Medical Diagnosis - Medical Diagnoses Medical Diagnosis Description & ICD-10 Code(s): r/o aspiration - ICD-10 Tx Diagnosis Coding (1) Dysphagia, oropharyngeal phase ICD-10 Code(s): R13.12 - DYSPHAGIA, OROPHARYNGEAL PHASE (2) Dysphagia, pharyngeal phase ICD-10 Code(s): R13.13 - DYSPHAGIA, PHARYNGEAL PHASE (3) Dysphagia, pharyngoesophageal phase ICD-10 Code(s): R13.14 - DYSPHAGIA, PHARYNGOESOPHAGEAL PHASE (4) Dysphagia, oral phase ICD-10 Code(s): R13.11 - DYSPHAGIA, ORAL PHASE ST Inpatient MBS - General Date: 10/12/16 Date of Onset: 10/09/16 - History History Obtained From: Patient - per EMR -: Medical - ST reviewed physicians notes, significant for: 10/10/16 admission with seizure, fever, aspiration into respiratory tract, and Todds paralysis. Current status includes: fever, UTI, chronic subdural hematoma, GERD. Patient is awaiting bed at [facility], but physician notes indicate ST to evaluate in meantime. Recent MRI significant for old left frontal injury, evidence of craniotomy, and recent right MCA distribution infarct. Prior Medical History significant for: bilateral pulmonary emboli, TBI & intracranial hemorrhage with residual deficits including left sided weakness and seizure disorder. At admission patient with decreased alertness but protecting airway with strong gag reflux. Most recent physician notes indicate increased alertness from admit , but patient only verbalizing one word. MBSS to assess swallow safety and assess for safest diet. Medications: Medications Reviewed Allergies: Refer to medical record - Subjective Current Nutritional Means: NPO - except ice chips and teaspoon sips of water Current Symptoms: other - high risk of aspiration Pain: 0/5 - Objective Assessment: Upright, Left Lateral - Food Trials Food Trials Used: Thin liquids The Patient: fed by ST - Assessment Labial Function: Impaired Lingual Function: Impaired Mandibular Function: Impaired Dentition: Partial Velo-Pharyngeal Function: Unremarkable Laryngeal Function: Weak Cough - Pharyngeal Stage Initiation of Pharyngeal Stage: Delayed Reflex Delay Time (seconds): 3 Decreased Laryngeal Elevation: Yes - significant Reduced Velo-Pharyngeal Closure: no Reduced Pressure Generation: Yes - significant Reduced Tongue Base Retraction: Yes - significant Pre-Swallowing Pooling in Valleculae: Significant Pre-Swallowing Pooling in Pyriforms: Mild Reduced Thyro-Hyiod Approximation: Yes - moderate Reduced Epiglottic Excursion: Yes - significant Reduced Pharyngeal Peristalsis: Yes - moderate-severe Post Swallow Residuals in Valleculae: Moderate Post Swallow Residuals in Pyriforms: Mild - trace to mild - Esophageal Stage Cricophageal Function: Impaired - Impression/Summary Laryngeal Penetration: No Tracheal Aspiration: no Compensatory Strategies: pt unable to complete compensatory strategies Patient Presents With: Oral stage dysphagia, Pharyngeal stage dysph., Oral- Pharyngeal dysph. Risk of Aspiration: Severe Risk of Nutritional Compromise: Severe - NG tube currently placed for nutrition - Recommendations NPO: yes Dysphagia Therapy with RELIEF DOCKING MASTER: Yes, Inpatient, Outpatient, Discharge Other Recommendations: 1) ST recommends continued NPO with alternate means of nutrition/hydration. 2) Medical team and family may wish to continue to provide ice chips or thin liquids by teaspoon only for oral comfort/oral hydration. 3) ST to attempt dysphagia treatment x3 next week. SUMMARY: Pt presents with a severe oral, oropharyngeal, and pharyngeal dysphagia. Premature spillage of thin liquids to level of valleculae which were observed to pool to the level pyriforms. Delayed initiation of swallow. Pt observed to attempt to initiation of swallow however unable to complete, with max cues pt able to fully initiate swallow. Moderate residuals of thin in valleculae, partial clearance with second swallow. No penetration observed during swallow. No aspiration seen during study, however pt is at risk of aspiration due to severeity of dysphagia and current medical status. - Time Total Time: 10 Total Timed Minutes: 0
[2016-10-12 09:49] LABS: DIRECT LDL 90 mg/dL (<100)
[2016-10-12] MEDS: LEVETIRACETAM 1000 MG/NACL-ISO 100 ML IV SCH (10:50)
[2016-10-12] MEDS: TAMSULOSIN HCL 0.4 MG CAP.SR.24H PO SCH (10:51)
[2016-10-12] MEDS: ASPIRIN 300 MG SUPP, RECTAL PR SCH (10:51)
[2016-10-12] MEDS: DOCUSATE SODIUM 100 MG CAPSULE PO SCH (10:54)
[2016-10-12 12:18] VITALS: BP 111/75
--- NOTE | 2016-10-12 21:00 | XCELERA REPORT ---
[address] [address] Transthoracic Echocardiogram Report Name: ALEXANDRA NORRIS Age: 61 yrs Gender: Male : 1955 Patient Status: Inpatient Patient Location: [id number]\S\336\S\A Study Date: 10/11/2016 07:20 PM Height: 72 in Weight: 187 lb BSA: 2.1 m2 Procedure: A complete two-dimensional transthoracic echocardiogram was performed (2D, M-mode, spectral and color flow Doppler). The study was technically limited with all images being suboptimal in quality. Images from the parasternal window were difficult to obtain and are suboptimal in quality. The subcostal views were difficult to obtain and are suboptimal in quality. Reason For Study: CVA Ordering Physician: MARCO TOLLIVER Performed By: Rosario James Interpretation Summary Due to the poor quality of the echocardiogram, an assessment of left ventricular ejection fraction cannot be made. Best estimate is well preserved. The study was technically limited with all images being suboptimal in quality. Consider additional methods to assess LVEF such as MUGA scan, CTA heart, cardiac MRI, CHELSEY, etc. if clinically indicated. There is mild concentric left ventricular hypertrophy. The left ventricle is grossly normal size. Doppler measurements suggest impaired left ventricular relaxation, which is associated with grade I/IV or mild diastolic dysfunction Regional wall motion abnormalities cannot be excluded due to limited visualization. The right ventricle is mild to moderately dilated. The right ventricular systolic function is normal. The right atrium is mildly dilated. The left atrial size is normal. There is a trace amount of mitral regurgitation No aortic regurgitation is present. There is no aortic valve stenosis There is a trace or physiologic amount of tricuspid regurgitation Tricuspid regurgitation jet envelope not well defined to measure RV systolic pressure accurately. There is no pericardial effusion. MMode/2D Measurements \T\ Calculations RVDd: 3.0 cm LVIDd: 4.2 cm FS: 27.8 % Ao root diam: 3.2 cm IVSd: 0.86 cm LVIDs: 3.1 cm EDV(Teich): 79.8 ml LVPWd: 1.2 cm ESV(Teich): 36.6 ml Ao root area: 8.2 cm2 EF(Teich): 54.2 % LA dimension: 3.2 cm Doppler Measurements \T\ Calculations MV E max maritza: MV P1/2t max maritza: Ao V2 max: LV V1 max P.2 cm/sec 60.7 cm/sec 139.7 cm/sec 5.2 mmHg MV A max maritza: MV P1/2t: 78.9 msec Ao max PG: LV V1 max: 66.6 cm/sec 7.8 mmHg 114.5 cm/sec MV E/A: 0.89 MVA(P1/2t): 2.8 cm2 MV dec slope: 225.4 cm/sec2 MV dec time: 0.26 sec PA V2 max: TR max maritza: 104.6 cm/sec 72.1 cm/sec PA max PG: TR max P.1 mmHg 4.4 mmHg Left Ventricle The left ventricle is grossly normal size. There is mild concentric left ventricular hypertrophy. Due to the poor quality of the echocardiogram, an assessment of left ventricular ejection fraction cannot be made. Best estimate is well preserved. Consider additional methods to assess LVEF such as MUGA scan, CTA heart, cardiac MRI, CHELSEY, etc. if clinically indicated. Doppler measurements suggest impaired left ventricular relaxation, which is associated with grade I/IV or mild diastolic dysfunction. Regional wall motion abnormalities cannot be excluded due to limited visualization. Right Ventricle The right ventricle is mild to moderately dilated. The right ventricular systolic function is normal. Atria The right atrium is mildly dilated. The left atrial size is normal. Interarterial septum not well visualized and not well dopplered. Cannot comment on ASD/PFO presence. Mitral Valve The mitral valve is not well visualized. There is no mitral valve stenosis. There is a trace amount of mitral regurgitation. Aortic Valve The aortic valve is not well visualized secondary to technical limitations. There is no aortic valve stenosis. No aortic regurgitation is present. Tricuspid Valve The tricuspid valve is not well visualized secondary to technical limitations. There is no tricuspid stenosis. There is a trace or physiologic amount of tricuspid regurgitation. Tricuspid regurgitation jet envelope not well defined to measure RV systolic pressure accurately. Pulmonic Valve The pulmonic valve is not well visualized. Great Vessels The aortic root is not well visualized. The inferior vena cava was not visualized. Effusions There is no pericardial effusion. : MARCO TOLLIVER > Jean-Paul Gifford
--- NOTE | 2016-10-13 14:53 | Progress Note ---
Provider Note Provider Note: This is an addendum to the discharge summary: Discharge date: 10/12/2016 Discharge and transfer process started on 10/10/2016, but a bed was not available until 10/12/16.
== END 2016-10-12 16:02 | disposition short-term general hospital (02) | DRG 100 ==
LOC: ER 16:31 → EH 20:02 → UNDOADMIN 20:02 → EH 21:23 → 4S 10-10 15:29 → 3S 10-11 02:00
PROVIDERS: ADMIT Internal Medicine; ATTEND Internal Medicine
DX: G40.909 Epilepsy, unspecified, not intractable, without status epilepticus (principal); I62.03 Nontraumatic chronic subdural hemorrhage; N39.0 Urinary tract infection, site not specified; E78.5 Hyperlipidemia, unspecified; K21.9 Gastro-esophageal reflux disease without esophagitis; G83.84 Todd's paralysis (postepileptic); T17.908A Unspecified foreign body in respiratory tract, part unspecified causing other injury, initial encounter; X58.XXXA Exposure to other specified factors, initial encounter; Y93.9 Activity, unspecified; Y92.9 Unspecified place or not applicable; S82.892D Other fracture of left lower leg, subsequent encounter for closed fracture with routine healing; X58.XXXD Exposure to other specified factors, subsequent encounter; B96.1 Klebsiella pneumoniae [K. pneumoniae] as the cause of diseases classified elsewhere; Z75.1 Person awaiting admission to adequate facility elsewhere; Z86.711 Personal history of pulmonary embolism; Z87.820 Personal history of traumatic brain injury; Z79.02 Long term (current) use of antithrombotics/antiplatelets; Z91.013 Allergy to seafood; Z91.041 Radiographic dye allergy status
CPT/HCPCS: 36415; 70450; 70551; 71010; 74000; 74230; 80048; 80053; 80061; 80307; 81001; 85025; 85610; 85730; 87040; 87086; 87088; 87186; 93005; 93010; 93306; 93880; 94640; 95819; 96361; 96374; 96375; 99285; J1644; J1953; J1956; J2060; J3490; J7030; J7620

== ENCOUNTER 2017-09-24 17:28 | Inpatient (IN) | payer OTHER ==
--- NOTE | 2017-09-24 18:41 | ER Document Report ---
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 IN LAST 30 DAYS: No - RESPIRATORY O2 Sat by Pulse Oximetry: 96 Course - Vital Signs Vital signs: Temp Pulse Resp BP Pulse Ox 97.6 F 122 H 20 100/67 96 09/24/17 17:44 09/24/17 17:44 09/24/17 17:44 09/24/17 17:44 09/24/17 17:44
--- NOTE | 2017-09-24 19:09 | ER Document Report ---
ED Medical Screen (RME) - General Chief Complaint: Leg Pain Stated Complaint: LEG PAIN Time Seen by Provider: 09/24/17 18:32 Notes: Patient is a 62-year-old male who presents emergency department complaining of lower extremity pain bilaterally. He admits to for 1 week claudication type symptoms. States that as he walks anywhere he gets achy feeling and pain in his thighs that improves with rest. Patient also admits that he has been having lower back pain since he was trying to shovel snow around his trailer and has been having low back pain with that. He has been taking Aleve at home which has helped his lower back but does not alleviate his leg discomfort. He also admits to dyspnea on exertion and not able to walk extreme distances without getting short of breath. He denies any orthopnea. Denies any history of heart failure. Patient is on Keppra for history of TBI primary care is with the [place] Past medical history significant for PE back in 2011 TRAVEL OUTSIDE OF THE [place] 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 LUNGS: Clear to auscultation bilaterally, no wheezes, rales, or rhonchi. No respiratory distress. HEART: Tachycardic rate and regular rhythm. No murmurs, gallops, or rubs. EXTREMITIES: Moves all 4 extremities spontaneously.1+ edema bilaterally, radial and dorsalis pedis pulses 2/4 bilaterally. No cyanosis. Capillary refill less than 2 seconds in all lower extremity digits NEUROLOGICAL: Alert and oriented x4. Normal speech. PSYCH: Normal affect, normal mood. SKIN: Warm, dry, normal turgor. No rashes or lesions noted. Course - Vital Signs Vital signs: Temp Pulse Resp BP Pulse Ox 97.6 F 122 H 20 100/67 96 09/24/17 17:44 09/24/17 17:44 09/24/17 17:44 09/24/17 17:44 09/24/17 17:44
--- NOTE | 2017-09-24 19:41 | RADIOLOGY REPORT (SQ) ---
EXAM DESCRIPTION: CHEST SINGLE VIEW COMPLETED DATE/TIME: 09/24/2017 7:26 pm REASON FOR STUDY: CARVAJAL COMPARISON: 10/11/2016 EXAM PARAMETERS: NUMBER OF VIEWS: One view. TECHNIQUE: Single frontal radiographic view of the chest acquired. RADIATION DOSE: NA LIMITATIONS: None. FINDINGS: LUNGS AND PLEURA: No opacities, masses or pneumothorax. No pleural effusion. MEDIASTINUM AND HILAR STRUCTURES: No masses. Contour normal. HEART AND VASCULAR STRUCTURES: Heart normal in size. Normal vasculature. BONES: No acute findings. HARDWARE: None in the chest. OTHER: No other significant finding. IMPRESSION: NO ACUTE RADIOGRAPHIC FINDING IN THE CHEST. TECHNICAL DOCUMENTATION: JOB ID: [id number] [employer]- All Rights Reserved
[2017-09-24 19:51] LABS: ABSOLUTE LYMPHOCYTES (AUTO) 1.1 10^3/uL (0.5-4.7); ABSOLUTE MONOCYTES (AUTO) 1.5 10^3/uL (0.1-1.4); ABSOLUTE NEUT (AUTO) 12.2 10^3/uL (1.7-8.2); BASOPHILS % (AUTO) 0.3 % (0-2); HEMATOCRIT 40.4 % (37.9-51.0); HEMOGLOBIN 13.3 g/dL (13.5-17.0); LYMPHOCYTES % (AUTO) 7.1 % (13-45); MEAN CORPUSCULAR HEMOGLOBIN 28.9 pg (27.0-33.4); MEAN CORPUSCULAR HGB CONC 32.9 g/dL (32.0-36.0); MEAN CORPUSCULAR VOLUME 88 fl (80-97); MONOCYTES % (AUTO) 10.4 % (3-13); PLATELET COUNT 188 10^3/uL (150-450); RED CELL DISTRIBUTION WIDTH 14.2 % (11.5-14.0); SEGMENTED NEUTROPHILS % (AUTO) 82.2 % (42-78); TOTAL CELLS COUNTED % (AUTO) 100 %; WHITE BLOOD COUNT 14.9 10^3/uL (4.0-10.5)
[2017-09-24 20:10] LABS: ALANINE AMINOTRANSFERASE 31 U/L (21-72); ALBUMIN 4.2 g/dL (3.5-5.0); ALKALINE PHOSPHATASE 96 U/L (38-126); ANION GAP 15 (5-19); ASPARTATE AMINO TRANSFERASE 36 U/L (17-59); BILIRUBIN,DIRECT 0.5 mg/dL (0.0-0.4); BILIRUBIN,TOTAL 1.2 mg/dL (0.2-1.3); BLOOD UREA NITROGEN 26 mg/dL (7-20); CALCIUM 9.9 mg/dL (8.4-10.2); CARBON DIOXIDE 23 mmol/L (22-30); CHLORIDE 101 mmol/L (98-107); GLUCOSE 121 mg/dL (75-110); POTASSIUM 4.6 mmol/L (3.6-5.0); SODIUM 138.9 mmol/L (137-145); TOTAL PROTEIN 7.6 g/dL (6.3-8.2)
[2017-09-24] MEDS ORDERED: FAMOTIDINE 20 MG TABLET PO ONE (20:14)
--- NOTE | 2017-09-24 20:14 | ER Document Report ---
ED General - General Chief Complaint: Leg Pain Stated Complaint: LEG PAIN Time Seen by Provider: 09/24/17 18:32 Notes: Patient is a 62-year-old male comes emergency department for chief complaint of shortness of breath on exertion and pain in his thighs when walking. He states that he can barely walk from one room to the next without sharp pains in his thighs and weakness. His sister is with him, she brought him because he states he came over and then collapsed when he came in the door onto the floor because he was weak. She states that he has been staying in his trailer for the past several days in the cold and she wants him checked out. He denies fevers, chest pain, cough, vomiting, abdominal pain. Past medical history includes TBI , seizure disorder, hyperlipidemia, GERD, pulmonary embolism, he states he has a Rachel filter. He states he has been taking naproxen for his back because he shoveled snow and it helps but his legs are still very painful and weak when he walks. He also states he has GERD right now and he wants a Tums. TRAVEL OUTSIDE OF THE [place] IN LAST 30 DAYS: No - Related Data Allergies/Adverse Reactions: Shellfish * [Shellfish] Allergy (Severe, Verified 09/24/17 17:30) Anaphylaxis iodine [Iodine] Allergy (Verified 09/24/17 17:30) Past Medical History - General Information source: Patient - Social History Smoking Status: Never Smoker Chew tobacco use (# tins/day): No Frequency of alcohol use: None Drug Abuse: None Lives with: Alone Family History: Reviewed & Not Pertinent, Other - Unable to obtain Patient has suicidal ideation: No Patient has homicidal ideation: No - Past Medical History Cardiac Medical History: Reports: Hx Hypercholesterolemia, Hx Pulmonary Embolism Neurological Medical History: Reports: Hx Seizures Renal/ Medical History: Denies: Hx Peritoneal Dialysis GI Medical History: Reports: Hx Gastroesophageal Reflux Disease Past Surgical History: Reports: Hx Orthopedic Surgery - 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 saw accident., Other - Evidence a craniotomy - Immunizations Hx Diphtheria, Pertussis, Tetanus Vaccination: Yes Review of Systems - Review of Systems Constitutional: No symptoms reported EENT: No symptoms reported Cardiovascular: See HPI Respiratory: See HPI Gastrointestinal: No symptoms reported Genitourinary: No symptoms reported Male Genitourinary: No symptoms reported Musculoskeletal: See HPI Skin: No symptoms reported Hematologic/Lymphatic: No symptoms reported Neurological/Psychological: No symptoms reported Physical Exam - Vital signs Vitals: Temp Pulse Resp BP Pulse Ox 97.6 F 122 H 20 100/67 96 09/24/17 17:44 09/24/17 17:44 09/24/17 17:44 09/24/17 17:44 09/24/17 17:44 Interpretation: Normal - General General appearance: Alert In distress: None - HEENT Head: Atraumatic. No: Normocephalic - There is a scar over the right side of the scalp extending over most of the top of the head Eyes: Normal Conjunctiva: Normal Extraocular movements intact: Yes Eyelashes: Normal Pupils: PERRL Nasal: Normal Mouth/Lips: Normal Mucous membranes: Normal Pharynx: Normal Neck: Normal - Respiratory Respiratory status: No respiratory distress Chest status: Nontender Breath sounds: Normal. No: Decreased air movement, Wheezing Chest palpation: Normal - Cardiovascular Rhythm: Regular. No: Tachycardia Heart sounds: Normal auscultation, S1 appreciated, S2 appreciated Murmur: No - Abdominal Inspection: Normal Distension: No distension Bowel sounds: Normal Tenderness: Nontender. No: Tender, Guarding - Back Back: Normal, Nontender. No: Tender - Extremities General upper extremity: Normal inspection, Nontender, Normal strength, Normal temperature General lower extremity: Normal inspection, Nontender, Normal strength, Normal temperature. No: Tender - I do not appreciate any tenderness or rigidity over the thighs, normal lower extremity exam, normal pulses, sensation, coloration, Edema - Neurological Neuro grossly intact: Yes Cognition: Normal Orientation: AAOx4 Berenice Coma Scale Eye Opening: Spontaneous Berenice Coma Scale Verbal: Oriented [place] Coma Scale Motor: Obeys Commands [place] Coma Scale Total: 15 Speech: Normal Motor strength normal: LUE, RUE, LLE, RLE Sensory: Normal - Psychological Associated symptoms: Normal affect, Normal mood - Skin Skin Temperature: Warm Skin Moisture: Dry Skin Color: Normal Course - Re-evaluation Re-evalutation: Patient appears to be in no distress at rest sitting on the bed, however if he stands he rapidly becomes very short of breath and he becomes tachycardic. Patient complaining of some thigh pain but on examination there is no pain, CK is negative. No edema suggesting DVT. Nonspecific and bilateral. CBC shows mild leukocytosis, nonspecific. Chemistry shows some renal insufficiency, urine evidence of dehydration, patient given IV fluids. Troponin is indeterminate at 0.04. Will trend. D-dimer is very elevated at greater than 20. Because of tachycardia, shortness of breath, history of PE despite patient having Rachel filter CT will be performed. Patient was discussed with Dr. Hsu who agrees with plan. CAT scan showing multiple right-sided pulmonary emboli. Patient lives alone, can barely get up to walk across the room. At rest he is stable. Will discuss with hospitalist for admission. Discussed with Dr. Collazo, internal medicine, patient will be admitted to the hospital, placing on telemetry floor. Starting Lovenox, this was discussed with hospitalist. Patient states understanding and agreement with plan. - Vital Signs Vital signs: Temp Pulse Resp BP Pulse Ox 97.6 F 122 H 16 111/81 95 09/24/17 17:44 09/24/17 17:44 09/25/17 01:01 09/25/17 01:01 09/25/17 01:01 - Laboratory Result Diagrams: 09/24/17 19:40 09/24/17 19:40 Laboratory results interpreted by me: 09/24/17 09/24/17 09/24/17 19:40 19:40 19:40 WBC 14.9 H Hgb 13.3 L RDW 14.2 H Seg Neutrophils % 82.2 H Lymphocytes % 7.1 L Absolute Neutrophils 12.2 H Absolute Monocytes 1.5 H D-Dimer BUN 26 H Creatinine 1.39 H Est GFR (Non-Af Amer) 52 L Glucose 121 H Direct Bilirubin 0.5 H Creatine Kinase 178 H Urine Protein Urine Urobilinogen 09/24/17 09/24/17 20:35 20:50 WBC Hgb RDW Seg Neutrophils % Lymphocytes % Absolute Neutrophils Absolute Monocytes D-Dimer > 20.00 H* BUN Creatinine Est GFR (Non-Af Amer) Glucose Direct Bilirubin Creatine Kinase Urine Protein 100 H Urine Urobilinogen 2.0 H Discharge - Discharge Clinical Impression: Shortness of breath Pulmonary embolism Qualifiers: Pulmonary embolism type: other Chronicity: acute Acute cor pulmonale presence: without acute cor pulmonale Qualified Code(s): I26.99 - Other pulmonary embolism without acute cor pulmonale Condition: Stable Disposition: ADMITTED INPATIENT Admitting Provider: Hospitalist Unit Admitted: Telemetry
[2017-09-24 21:24] LABS: APPEARANCE,URINE CLOUDY; BILIRUBIN,URINE NEGATIVE (NEGATIVE); COLOR,URINE AMBER; GLUCOSE, URINE NEGATIVE (NEGATIVE); KETONES,URINE NEGATIVE (NEGATIVE); LEUKOCYTE ESTERASE,URINE NEGATIVE (NEGATIVE); NITRITE,URINE NEGATIVE (NEGATIVE); PROTEIN,URINE 100 mg/dL (NEGATIVE); URINE SPECIFIC GRAVITY 1.034
[2017-09-24] MEDS ORDERED: NORMAL SALINE 1000 ML 1,000 ML IV ONE (22:18)
--- NOTE | 2017-09-24 23:39 | RADIOLOGY REPORT (SQ) ---
EXAM DESCRIPTION: CTA CHEST COMPLETED DATE/TIME: 09/24/2017 10:55 pm REASON FOR STUDY: elevated D-Dimer>20, short of breath COMPARISON: Chest x-ray 09/24/2017. CT angiogram chest 07/10/2013. TECHNIQUE: CT scan of the chest performed using helical scanning technique with dynamic intravenous contrast injection. Images reviewed with lung, soft tissue and bone windows. Reconstructed coronal and sagittal MPR images reviewed. Additional 3 dimensional post-processing performed to develop Maximal Intensity Projection images (CA P). All images stored on PACS. All CT scanners at this facility use dose modulation, iterative reconstruction, and/or weight based d osing when appropriate to reduce radiation dose to as low as reasonably achievable (ALARA). [facility]: Dose Right [facility]: CareDose [facility]: Dose Right [facility]: Teradose 4D [facility]: [employer] CONTRAST TYPE AND DOSE: contrast/concentration: Isovue 370.00 mg/ml; Total Contrast Delivered: 75.0 ml; Total Saline Delivered: 70.0 ml Contrast bolus optimized for the pulmonary arteries. Not diagnostic for the aorta. RENAL FUNCTION: Creatinine 1.39 RADIATION DOSE: CT Rad equipment meets quality standard of care and radiation dose reduction techniq ues were employed. CTDIvol: 7.5 - 13.2 mGy. DLP: 499 mGy-cm. . LIMITATIONS: None. FINDINGS: LUNGS AND PLEURA: No consolidation, pleural effusion or pneumothorax. AORTA AND GREAT VESSELS: No thoracic aortic aneurysm. Contrast bolus not optimized for the aorta. HEART: No pericardial effusion. Scattered coronary artery calcifications. PULMONARY ARTERIES: No emboli visualized in the main pulmonary arteries. Small emboli are seen withi n the segmental and subsegmental pulmonary arteries in the right upper lobe, right middle lobe and ri ght lower lobe. HILAR AND MEDIASTINAL STRUCTURES: No identified masses or abnormal nodes. HARDWARE: None in the chest. UPPER ABDOMEN: There is cholelithiasis. THYROID AND OTHER SOFT TISSUES: The visualized thyroid gland is unremarkable. BONES: Mild multilevel degenerative changes in the spine. 3D MIPS: Confirm above findings. IMPRESSION: 1. Acute pulmonary emboli in the right lung. 2. Cholelithiasis. COMMENT: Pertinent findings on the imaging study reported as a CRITICAL RESULT to EUN BARRIOS at 23:34 hrs on 09/24/2017. Category of Critical Result: Acute pulmonary emboli Quality ID # [id number]: Final reports with documentation of one or more dose reduction techniques (e.g., Au tomated exposure control, adjustment of the mA and/or kV according to patient size, use of iterative reconstruction technique) TECHNICAL DOCUMENTATION: JOB ID: [id number] [place]-64 2010 [employer]- All Rights Reserved
[2017-09-24 23:46] LABS: INTERNATIONAL RATION (INR) 0.97; PROTHROMBIN TIME 13.6 SEC (11.4-15.4)
[2017-09-24 23:47] LABS: PARTIAL THROMBOPLASTIN TIME 33.7 SEC (23.5-35.8)
[2017-09-25] MEDS ORDERED: ENOXAPARIN SODIUM INJ 100 MG/1 ML DISP.SYRIN SUBCUT SCH ×2 (00:15→10:00)
[2017-09-25] MEDS ORDERED: LEVETIRACETAM 500 MG TABLET PO ONE (01:45)
[2017-09-25] MEDS: NORMAL SALINE 1000 ML 1,000 ML IV PRN ×2 (03:49→12:13)
[2017-09-25 05:01] LABS: ABSOLUTE BASOPHILS # (AUTO) 0.1 10^3/uL (0.0-0.2); ABSOLUTE EOSINOPHILS # (AUTO) 0.1 10^3/uL (0.0-0.6); ABSOLUTE LYMPHOCYTES (AUTO) 1.9 10^3/uL (0.5-4.7); ABSOLUTE MONOCYTES (AUTO) 1.4 10^3/uL (0.1-1.4); ABSOLUTE NEUT (AUTO) 7.7 10^3/uL (1.7-8.2); BASOPHILS % (AUTO) 0.5 % (0-2); EOSINOPHILS % (AUTO) 1.1 % (0-6); HEMOGLOBIN 12.3 g/dL (13.5-17.0); LYMPHOCYTES % (AUTO) 16.9 % (13-45); MEAN CORPUSCULAR HEMOGLOBIN 28.9 pg (27.0-33.4); MEAN CORPUSCULAR HGB CONC 33.1 g/dL (32.0-36.0); MEAN CORPUSCULAR VOLUME 87 fl (80-97); MONOCYTES % (AUTO) 12.5 % (3-13); PLATELET COUNT 174 10^3/uL (150-450); RED BLOOD COUNT 4.24 10^6/uL (4.35-5.55); RED CELL DISTRIBUTION WIDTH 14.5 % (11.5-14.0); TOTAL CELLS COUNTED % (AUTO) 100 %; WHITE BLOOD COUNT 11.1 10^3/uL (4.0-10.5)
--- NOTE | 2017-09-25 06:33 | EKG REPORT ---
SEVERITY:- BORDERLINE ECG - SINUS RHYTHM BORDERLINE ST ELEVATION, ANTEROLATERAL LEADS : Confirmed by: Frankie Brown MD 25-Sep-2017 06:33:00
--- NOTE | 2017-09-25 06:56 | PDOC H&P ---
History of Present Illness Admission Date/PCP: 09/25/17 00:53 Patient complains of: Shortness of breath History of Present Illness: ALEXANDRA NORRIS is a 62 year old male with a past medical history of traumatic brain injury with subsequent seizure and subdural hematoma, deep vein thrombosis , status post Rachel filter placement and pulmonary emboli. Patient is a senior care resident presents with shortness of breath in the emergency room he is found to have multiple acute right sided pulmonary emboli. He is placed on Lovenox 1 mg/kg and referred to the hospitalist for admission. Patient denies chest pain, recent trauma and is otherwise felt well. 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., Other - Evidence a craniotomy Social History Information Source: Patient Lives with: Alone Smoking Status: Never Smoker Frequency of Alcohol Use: None Hx Recreational Drug Use: No Hx Prescription Drug Abuse: No - Advance Directive Resuscitation Status: Full Code Family History Family History: Reviewed & Not Pertinent, Other - Unable to obtain Parental Family History Reviewed: Yes Children Family History Reviewed: Yes Sibling(s) Family History Reviewed.: Yes Medication/Allergy Home Medications: Levetiracetam [Keppra 500 mg Tablet] 500 mg PO Q12 #60 tablet 04/03/16 Allergies/Adverse Reactions: Shellfish * [Shellfish] Allergy (Severe, Verified 09/24/17 17:30) Anaphylaxis iodine [Iodine] Allergy (Verified 09/24/17 17:30) Review of Systems Constitutional: ABSENT: chills, fever(s), headache(s), weight gain, weight loss Eyes: ABSENT: visual disturbances Ears: ABSENT: hearing changes Cardiovascular: ABSENT: chest pain, dyspnea on exertion, edema, orthropnea, palpitations Respiratory: ABSENT: cough, hemoptysis Gastrointestinal: ABSENT: abdominal pain, constipation, diarrhea, hematemesis, hematochezia, nausea, vomiting Genitourinary: ABSENT: dysuria, hematuria Musculoskeletal: ABSENT: joint swelling Integumentary: ABSENT: rash, wounds Neurological: ABSENT: abnormal gait, abnormal speech, confusion, dizziness, focal weakness, syncope Psychiatric: ABSENT: anxiety, depression, homidical ideation, suicidal ideation Endocrine: ABSENT: cold intolerance, heat intolerance, polydipsia, polyuria Hematologic/Lymphatic: ABSENT: easy bleeding, easy bruising Physical Exam Vital Signs: Temp Pulse Resp BP Pulse Ox 97.6 F 122 H 24 H 113/84 97 09/24/17 17:44 09/24/17 17:44 09/25/17 02:01 09/25/17 02:01 09/25/17 02:01 Intake & Output 09/23/17 09/24/17 09/25/17 11:59 11:59 11:59 Intake Total 1850 Balance 1850 Weight 90.45 kg General appearance: PRESENT: no acute distress, well-developed, well-nourished Head exam: PRESENT: atraumatic, normocephalic Eye exam: PRESENT: conjunctiva pink, EOMI, PERRLA. ABSENT: scleral icterus Ear exam: PRESENT: normal external ear exam Mouth exam: PRESENT: moist, tongue midline Neck exam: ABSENT: carotid bruit, JVD, lymphadenopathy, thyromegaly Respiratory exam: PRESENT: clear to auscultation [place]. ABSENT: rales, rhonchi, wheezes Cardiovascular exam: PRESENT: RRR. ABSENT: diastolic murmur, rubs, systolic murmur Pulses: PRESENT: normal dorsalis pedis pul Vascular exam: PRESENT: normal capillary refill GI/Abdominal exam: PRESENT: normal bowel sounds, soft. ABSENT: distended, guarding, mass, organolmegaly, rebound, tenderness Rectal exam: PRESENT: deferred Extremities exam: PRESENT: full ROM. ABSENT: calf tenderness, clubbing, pedal edema Neurological exam: PRESENT: alert, awake, oriented to person, oriented to place , oriented to time, oriented to situation, CN II-XII grossly intact. ABSENT: motor sensory deficit Psychiatric exam: PRESENT: appropriate affect, normal mood. ABSENT: homicidal ideation, suicidal ideation Skin exam: PRESENT: dry, intact, warm. ABSENT: cyanosis, rash Results Laboratory Results: 09/25/17 04:40 09/25/17 04:40 WBC 11.1 H RBC 4.24 L Hgb 12.3 L Hct 37.0 L MCV 87 MCH 28.9 MCHC 33.1 RDW 14.5 H Plt Count 174 Seg Neutrophils % 69.0 Lymphocytes % 16.9 Monocytes % 12.5 Eosinophils % 1.1 Basophils % 0.5 Absolute Neutrophils 7.7 Absolute Lymphocytes 1.9 Absolute Monocytes 1.4 Absolute Eosinophils 0.1 Absolute Basophils 0.1 Impressions: Chest X-Ray 09/24/17 19:04 IMPRESSION: NO ACUTE RADIOGRAPHIC FINDING IN THE CHEST. Chest/Abdomen CTA 09/24/17 21:01 IMPRESSION: 1. Acute pulmonary emboli in the right lung. 2. Cholelithiasis. Assessment & Plan - Diagnosis (1) Pulmonary embolism Qualifiers: Pulmonary embolism type: other Chronicity: acute Acute cor pulmonale presence: without acute cor pulmonale Qualified Code(s): I26.99 - Other pulmonary embolism without acute cor pulmonale Is this a current diagnosis for this admission?: Yes Plan: Telemetry bed, hemodynamically stable, Lovenox protocol initiated. (2) Seizure Is this a current diagnosis for this admission?: Yes Plan: Continue Keppra - Time Time Spent: 50 to 70 Minutes - Inpatient Certification Medical Necessity: Need Close Monitoring Due to Risk of Patient Decompensation
[2017-09-25] MEDS: IPRATROPIUM/ALBUTEROL 0.5-2.5 MG/3 ML AMPUL NEB SCH ×2 (08:36→16:07)
[2017-09-25] MEDS: DOCUSATE SODIUM 100 MG CAPSULE PO SCH ×2 (08:52→16:55)
[2017-09-25] MEDS: LEVETIRACETAM 500 MG TABLET PO SCH ×2 (08:52→21:19)
[2017-09-25] MEDS ORDERED: APIXABAN 5 MG TABLET PO ONE (19:30)
[2017-09-25] MEDS: ACETAMINOPHEN 325 MG TABLET PO PRN (19:57)
[2017-09-26] MEDS: IPRATROPIUM/ALBUTEROL 0.5-2.5 MG/3 ML AMPUL NEB SCH ×3 (00:47→15:56)
[2017-09-26] MEDS: ACETAMINOPHEN 325 MG TABLET PO PRN (02:16)
[2017-09-26 07:04] LABS: HEMATOCRIT 34.7 % (37.9-51.0); HEMOGLOBIN 11.7 g/dL (13.5-17.0); MEAN CORPUSCULAR HEMOGLOBIN 29.3 pg (27.0-33.4); MEAN CORPUSCULAR HGB CONC 33.8 g/dL (32.0-36.0); MEAN CORPUSCULAR VOLUME 87 fl (80-97); PLATELET COUNT 197 10^3/uL (150-450); RED BLOOD COUNT 4.01 10^6/uL (4.35-5.55); RED CELL DISTRIBUTION WIDTH 14.3 % (11.5-14.0); WHITE BLOOD COUNT 8.9 10^3/uL (4.0-10.5)
--- NOTE | 2017-09-26 08:34 | XCELERA REPORT ---
[address] [address] Lower Extremity Venous Evaluation Name: ALEXANDRA NORRIS Age: 62 yrs Gender: Male : 1955 Patient Status: Inpatient Patient Location: [address] [place] [address] Study Date: 09/25/2017 02:15 PM Procedure: Color flow and duplex imaging bilaterally of the veins of the lower extremities as well as the Common Femoral veins. Reason For Study: new dx of unprovoked PE. b/l study to rule out DVT Ordering Physician: KARO TERRELL Performed By: Willow Mullins Right Sided Venous Evaluation Continuous flow in the Common Femoral vein noted. Normal vessel filling wall to wall, compression and augmentation as well as Colour flow down to the infrageniculate veins. Left Sided Venous Evaluation Abnormal vessel filling , lack of compression and compression and no Colour flow in the Sapheno Femoral junction. Otherwise normal down to the infrageniculate veins. Interpretation Summary Borderline findings on the left with thrombus at the Sapheno Femoral junction. Findings on the right are suspicious for possible occlusion in the right Iliac vein. : KARO TERRELL > Quentin Samayoa
[2017-09-26] MEDS ORDERED: APIXABAN 5 MG TABLET PO SCH (10:00)
[2017-09-26] MEDS: LEVETIRACETAM 500 MG TABLET PO SCH (11:33)
[2017-09-26] MEDS: DOCUSATE SODIUM 100 MG CAPSULE PO SCH (11:33)
--- NOTE | 2017-09-26 14:30 | PDOC DISCHARGE SUMMARY ---
General - Admit/Disc Date/PCP Admission Date/Primary Care Provider: 09/25/17 00:53 PCP: Dr. Tom, [place], [place] Discharge Date: 09/26/17 - Discharge Diagnosis (1) Pulmonary embolism Is this a current diagnosis for this admission?: Yes Summary: Unproved PE: No identifiable risk factors for PE. Lower extremity dopplers with evidence of DVT, which is likely source. Patient does have prior VTE history. Unclear if hypercoaguble workup has been performed in past. - CTA (09/24/17): Small emboli and seen in segmental and subsegmental pulmonary artiest in the right upper, lower, and middle lobes. - Lower Extremity Doppler Studies (09/25/17): - Right: continuous flow int he common femoral vein - Left: Abnormal vessel filling, lack of compression, and no color flow in the sapheno-femoral junction. Otherwise normal. - Labs: Trop negative * 2, d. dimer elevated - Started on Lovenox 1mg/kg BID, transitioned to Eliquis 5mg BID - Given unprovoked nature of VTE, patient needs minimum of 6 months of anticoagulation, if not indefinite/life-long - Would be reasonable to perform hypercoagulable workup as outpatient - please repeat CBC and BMP as outpatient - Advised to be cautious with activity while on DOAC (2) Acute deep vein thrombosis (DVT) Is this a current diagnosis for this admission?: Yes Summary: Per above, See #1 - Given evidence of left sided DVT, discussed with Dr. Samayoa (general surgery ) about management recommendations - Advised patient that he should get CT venogram of abdomen/pelvis to determine extent of clot in the iliofemoral venous system. If extensive, then would be reasonable to meet with vascular surgery at [facility], or other tertiary care center to discuss surgical intervention. The goal of further work up would be to prevent Post Thrombotic Syndrome. - Today, patient did NOT want additional imaging during admission. He wanted to speak with this PCP to determine if CT Venogram would be approved with the DC - Since he is on a DOAC, it is reasonable to hold additional work up as an outpatient. - Plan was discussed with patient and his sister, who is his primary health care law specialist (3) Seizure Is this a current diagnosis for this admission?: No Summary: Known seizure history. Continue current home medications. Advised patient that he should NOT be driving unless cleared by a neurologist. (4) Traumatic brain injury Is this a current diagnosis for this admission?: No - Additional Information Resuscitation Status: Full Code Discharge Diet: Regular Discharge Activity: Activity As Tolerated, Other - Would not recommend driving if actively having seizures Prescriptions: Apixaban [Eliquis 5 mg Tablet] 5 mg PO BID 30 Days #60 tablet Home Medications: Calcium Carbonate [Calcium] 500 mg PO MEALS PRN 09/25/17 Levetiracetam [Keppra 500 mg Tablet] 500 mg PO Q12 09/25/17 Apixaban [Eliquis 5 mg Tablet] 5 mg PO BID 30 Days #60 tablet 09/26/17 History of Present Illness History of Present Illness: ALEXANDRA NORRIS is a 62 year old male with a past medical history of traumatic brain injury with subsequent seizure and subdural hematoma, deep vein thrombosis , status post [place] filter placement and pulmonary emboli. Patient is a [facility] resident presents with shortness of breath in the emergency room he is found to have multiple acute right sided pulmonary emboli. He is placed on Lovenox 1 mg/kg and admitted for further evaluation. Patient denies chest pain, lower extremity pain or swelling, recent trauma and is otherwise felt well. Physical Exam Vital Signs: Temp Pulse Resp BP Pulse Ox 98.8 F 93 17 107/68 99 09/26/17 13:06 09/26/17 13:06 09/26/17 13:06 09/26/17 13:06 09/26/17 13:06 Intake & Output 09/25/17 09/26/17 09/27/17 06:59 06:59 06:59 Intake Total 1850 2606 Balance 1850 2606 Weight 90.45 kg 90.48 kg General appearance: PRESENT: no acute distress, well-developed, well-nourished Head exam: PRESENT: atraumatic, normocephalic Mouth exam: PRESENT: moist Respiratory exam: PRESENT: clear to auscultation [place], unlabored Cardiovascular exam: PRESENT: RRR. ABSENT: systolic murmur Pulses: PRESENT: normal femoral pulses, +2 pedal pulses bilateral Vascular exam: PRESENT: normal capillary refill. ABSENT: pallor Musculoskeletal exam: PRESENT: ambulatory Neurological exam: PRESENT: alert, altered, CN II-XII grossly intact Psychiatric exam: PRESENT: appropriate affect Results Laboratory Results: 09/26/17 05:50 09/26/17 05:50 WBC 8.9 RBC 4.01 L Hgb 11.7 L Hct 34.7 L MCV 87 MCH 29.3 MCHC 33.8 RDW 14.3 H Plt Count 197 Labs- Entire Visit 09/24/17 09/24/17 09/24/17 19:40 19:40 19:40 WBC 14.9 H RBC 4.60 Hgb 13.3 L Hct 40.4 MCV 88 MCH 28.9 MCHC 32.9 RDW 14.2 H Plt Count 188 Seg Neutrophils % 82.2 H Lymphocytes % 7.1 L Monocytes % 10.4 Eosinophils % 0.0 Basophils % 0.3 Absolute Neutrophils 12.2 H Absolute Lymphocytes 1.1 Absolute Monocytes 1.5 H Absolute Eosinophils 0.0 Absolute Basophils 0.0 PT INR APTT D-Dimer Sodium 138.9 Potassium 4.6 Chloride 101 Carbon Dioxide 23 Anion Gap 15 BUN 26 H Creatinine 1.39 H Est GFR ( Amer) > 60 Est GFR (Non-Af Amer) 52 L Glucose 121 H Calcium 9.9 Total Bilirubin 1.2 Direct Bilirubin 0.5 H Neonat Total Bilirubin Not Reportable Neonat Direct Bilirubin Not Reportable Neonat Indirect Bili Not Reportable AST 36 ALT 31 Alkaline Phosphatase 96 Creatine Kinase Troponin I NT-Pro-B Natriuret Pep 157 Total Protein 7.6 Albumin 4.2 Urine Color Urine Appearance Urine pH Ur Specific [place] Urine Protein Urine Glucose (UA) Urine Ketones Urine Blood Urine Nitrite Urine Bilirubin Urine Urobilinogen Ur Leukocyte Esterase Urine WBC (Auto) Urine RBC (Auto) U Hyaline Cast (Auto) Squamous Epi Cells Auto Urine Mucus (Auto) Urine Ascorbic Acid 09/24/17 09/24/17 09/24/17 19:40 19:40 19:40 WBC RBC Hgb Hct MCV MCH MCHC RDW Plt Count Seg Neutrophils % Lymphocytes % Monocytes % Eosinophils % Basophils % Absolute Neutrophils Absolute Lymphocytes Absolute Monocytes Absolute Eosinophils Absolute Basophils PT INR APTT D-Dimer Cancelled Sodium Potassium Chloride Carbon Dioxide Anion Gap BUN Creatinine Est GFR ( Amer) Est GFR (Non-Af Amer) Glucose Calcium Total Bilirubin Direct Bilirubin Neonat Total Bilirubin Neonat Direct Bilirubin Neonat Indirect Bili AST ALT Alkaline Phosphatase Creatine Kinase 178 H Troponin I 0.040 NT-Pro-B Natriuret Pep Total Protein Albumin Urine Color Urine Appearance Urine pH Ur Specific [place] Urine Protein Urine Glucose (UA) Urine Ketones Urine Blood Urine Nitrite Urine Bilirubin Urine Urobilinogen Ur Leukocyte Esterase Urine WBC (Auto) Urine RBC (Auto) U Hyaline Cast (Auto) Squamous Epi Cells Auto Urine Mucus (Auto) Urine Ascorbic Acid 09/24/17 09/24/17 09/24/17 20:35 20:35 20:50 WBC RBC Hgb Hct MCV MCH MCHC RDW Plt Count Seg Neutrophils % Lymphocytes % Monocytes % Eosinophils % Basophils % Absolute Neutrophils Absolute Lymphocytes Absolute Monocytes Absolute Eosinophils Absolute Basophils PT 13.6 INR 0.97 APTT 33.7 D-Dimer > 20.00 H* Sodium Potassium Chloride Carbon Dioxide Anion Gap BUN Creatinine Est GFR ( Amer) Est GFR (Non-Af Amer) Glucose Calcium Total Bilirubin Direct Bilirubin Neonat Total Bilirubin Neonat Direct Bilirubin Neonat Indirect Bili AST ALT Alkaline Phosphatase Creatine Kinase Troponin I NT-Pro-B Natriuret Pep Total Protein Albumin Urine Color ESTRADA Urine Appearance CLOUDY Urine pH 5.0 Ur Specific [place] 1.034 Urine Protein 100 H Urine Glucose (UA) NEGATIVE Urine Ketones NEGATIVE Urine Blood NEGATIVE Urine Nitrite NEGATIVE Urine Bilirubin NEGATIVE Urine Urobilinogen 2.0 H Ur Leukocyte Esterase NEGATIVE Urine WBC (Auto) 4 Urine RBC (Auto) 2 U Hyaline Cast (Auto) 2 Squamous Epi Cells Auto 1 Urine Mucus (Auto) MANY Urine Ascorbic Acid NEGATIVE 09/24/17 09/25/17 09/26/17 23:07 04:40 05:50 WBC 11.1 H 8.9 RBC 4.24 L 4.01 L Hgb 12.3 L 11.7 L Hct 37.0 L 34.7 L MCV 87 87 MCH 28.9 29.3 MCHC 33.1 33.8 RDW 14.5 H 14.3 H Plt Count 174 197 Seg Neutrophils % 69.0 Lymphocytes % 16.9 Monocytes % 12.5 Eosinophils % 1.1 Basophils % 0.5 Absolute Neutrophils 7.7 Absolute Lymphocytes 1.9 Absolute Monocytes 1.4 Absolute Eosinophils 0.1 Absolute Basophils 0.1 PT INR APTT D-Dimer Sodium Potassium Chloride Carbon Dioxide Anion Gap BUN Creatinine Est GFR ( Amer) Est GFR (Non-Af Amer) Glucose Calcium Total Bilirubin Direct Bilirubin Neonat Total Bilirubin Neonat Direct Bilirubin Neonat Indirect Bili AST ALT Alkaline Phosphatase Creatine Kinase Troponin I 0.035 NT-Pro-B Natriuret Pep Total Protein Albumin Urine Color Urine Appearance Urine pH Ur Specific [place] Urine Protein Urine Glucose (UA) Urine Ketones Urine Blood Urine Nitrite Urine Bilirubin Urine Urobilinogen Ur Leukocyte Esterase Urine WBC (Auto) Urine RBC (Auto) U Hyaline Cast (Auto) Squamous Epi Cells Auto Urine Mucus (Auto) Urine Ascorbic Acid Chest X-Ray 09/24/17 19:04 IMPRESSION: NO ACUTE RADIOGRAPHIC FINDING IN THE CHEST. Chest/Abdomen CTA 09/24/17 21:01 IMPRESSION: 1. Acute pulmonary emboli in the right lung. 2. Cholelithiasis. Impressions: Chest X-Ray 09/24/17 19:04 IMPRESSION: NO ACUTE RADIOGRAPHIC FINDING IN THE CHEST. Chest/Abdomen CTA 09/24/17 21:01 IMPRESSION: 1. Acute pulmonary emboli in the right lung. 2. Cholelithiasis. Qualifiers PATEINT BEING DISCHARGED WITH ANY OF THE FOLLOWING DIAGNOSIS?: VTE (PE or DVT ) - Dc on Eliquis VTE patient discharged on overlapping Therapy?: Yes
[2017-09-26 14:48] VITALS: BP 117/85
== END 2017-09-26 15:30 | disposition home or self-care (01) | DRG 176 ==
LOC: ER 17:28 → EH 09-25 00:53 → 5 09-25 08:21
PROVIDERS: ADMIT Internal Medicine; ATTEND Internal Medicine
DX: I26.99 Other pulmonary embolism without acute cor pulmonale (principal); I82.422 Acute embolism and thrombosis of left iliac vein; K21.9 Gastro-esophageal reflux disease without esophagitis; E78.00 Pure hypercholesterolemia, unspecified; G40.909 Epilepsy, unspecified, not intractable, without status epilepticus; Z60.2 Problems related to living alone; Z87.820 Personal history of traumatic brain injury; Z86.718 Personal history of other venous thrombosis and embolism
CPT/HCPCS: 36415; 71045; 71275; 80053; 81001; 82550; 83880; 84484; 85025; 85027; 85379; 85610; 85730; 93005; 93010; 93970; 94640; 96360; 96372; 99285; J1650; J7030; J7620

== ENCOUNTER 2018-01-01 10:14 | Emergency (ER) | payer OTHER ==
--- NOTE | 2018-01-01 10:34 | ER Document Report ---
ED Medical Screen (RME) - General Chief Complaint: Leg Pain Stated Complaint: LEG PAIN Time Seen by Provider: 01/01/18 10:28 Notes: Patient is a 62-year-old male, past medical history bilateral lower extremity DVTs, PEs, presents with increased bilateral leg swelling and pain. He has run out of his Eliquis for the past week. He saw his primary care physician at the [place] [facility] and was sent to the ER due to concern about DVTs and PEs. Denies chest pain, shortness of breath, hemoptysis or syncope. Patient is able to obtain a CTA with contrast without any allergic reaction occurring. PE: RRR. Lungs CTAB. Unlabored breathing. Swelling and mild erythema of B/L calves. I have greeted and performed a rapid initial assessment of this patient. A comprehensive ED assessment and evaluation of the patient, analysis of test results and completion of the medical decision making process will be conducted by additional ED providers. TRAVEL OUTSIDE OF THE [place] IN LAST 30 DAYS: No - Related Data Allergies/Adverse Reactions: Shellfish * [Shellfish] Allergy (Severe, Verified 09/24/17 17:30) Anaphylaxis iodine [Iodine] Allergy (Verified 09/24/17 17:30) Past Medical History - Social History Chew tobacco use (# tins/day): No Frequency of alcohol use: None Drug Abuse: None - Past Medical History Cardiac Medical History: Reports: Hx Hypercholesterolemia, Hx Pulmonary Embolism Neurological Medical History: Reports: Hx Seizures Renal/ Medical History: Denies: Hx Peritoneal Dialysis GI Medical History: Reports: Hx Gastroesophageal Reflux Disease Past Surgical History: Reports: Hx Orthopedic Surgery - 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
[2018-01-01 10:58] LABS: ABSOLUTE EOSINOPHILS # (AUTO) 0.2 10^3/uL (0.0-0.6); ABSOLUTE LYMPHOCYTES (AUTO) 1.1 10^3/uL (0.5-4.7); ABSOLUTE MONOCYTES (AUTO) 0.7 10^3/uL (0.1-1.4); ABSOLUTE NEUT (AUTO) 4.3 10^3/uL (1.7-8.2); BASOPHILS % (AUTO) 0.5 % (0-2); HEMATOCRIT 44.4 % (37.9-51.0); HEMOGLOBIN 14.5 g/dL (13.5-17.0); LYMPHOCYTES % (AUTO) 17.8 % (13-45); MEAN CORPUSCULAR HEMOGLOBIN 28.1 pg (27.0-33.4); MEAN CORPUSCULAR HGB CONC 32.8 g/dL (32.0-36.0); MEAN CORPUSCULAR VOLUME 86 fl (80-97); MONOCYTES % (AUTO) 10.9 % (3-13); PLATELET COUNT 277 10^3/uL (150-450); RED BLOOD COUNT 5.17 10^6/uL (4.35-5.55); SEGMENTED NEUTROPHILS % (AUTO) 67.8 % (42-78); TOTAL CELLS COUNTED % (AUTO) 100 %; WHITE BLOOD COUNT 6.4 10^3/uL (4.0-10.5)
[2018-01-01 11:05] LABS: INTERNATIONAL RATION (INR) 0.93; PARTIAL THROMBOPLASTIN TIME 28.1 SEC (23.5-35.8)
[2018-01-01 11:55] LABS: ALANINE AMINOTRANSFERASE 29 U/L (21-72); ALBUMIN 4.1 g/dL (3.5-5.0); ALKALINE PHOSPHATASE 73 U/L (38-126); ANION GAP 9 (5-19); ASPARTATE AMINO TRANSFERASE 21 U/L (17-59); BILIRUBIN,DIRECT 0.3 mg/dL (0.0-0.4); BILIRUBIN,TOTAL 0.5 mg/dL (0.2-1.3); BLOOD UREA NITROGEN 15 mg/dL (7-20); CALCIUM 9.6 mg/dL (8.4-10.2); CARBON DIOXIDE 29 mmol/L (22-30); CHLORIDE 105 mmol/L (98-107); GLUCOSE 120 mg/dL (75-110); POTASSIUM 5.1 mmol/L (3.6-5.0); SODIUM 142.7 mmol/L (137-145); TOTAL PROTEIN 7.4 g/dL (6.3-8.2)
[2018-01-01] MEDS ORDERED: HEPARIN SOD (PORCINE) 1,000 UNIT/ML 10 ML VIAL IV ONE (12:39)
[2018-01-01] MEDS ORDERED: HEPARIN SODIUM,PORCINE/D5W 25,000 UNIT/250 ML RTUINJ IV PRN (12:39)
--- NOTE | 2018-01-01 12:41 | RADIOLOGY REPORT (SQ) ---
EXAM DESCRIPTION: CTA CHEST COMPLETED DATE/TIME: 01/01/2018 12:27 pm REASON FOR STUDY: Hx PE, SOB COMPARISON: CT angio chest 09/24/2017, 07/10/2013 Chest films 09/24/2017 TECHNIQUE: CT scan of the chest performed using helical scanning technique with dynamic intravenous contrast injection. Images reviewed with lung, soft tissue and bone windows. Reconstructed coronal and sagittal MPR images reviewed. Additional 3 dimensional post-processing performed to develop Maximal Intensity Projection images (GA P). All images stored on PACS. All CT scanners at this facility use dose modulation, iterative reconstruction, and/or weight based d osing when appropriate to reduce radiation dose to as low as reasonably achievable (ALARA). [facility]: Dose Right [facility]: CareDose [facility]: Dose Right [facility]: Teradose 4D [facility]: Drill Map CONTRAST TYPE AND DOSE: contrast/concentration: Isovue 370.00 mg/ml; Total Contrast Delivered: 81.0 ml; Total Saline Delivered: 89.4 ml Contrast bolus optimized for the pulmonary arteries. Not diagnostic for the aorta. RENAL FUNCTION: Creatinine 1.0 RADIATION DOSE: CT Rad equipment meets quality standard of care and radiation dose reduction techniq ues were employed. CTDIvol: 13.2 - 18.4 mGy. DLP: 643 mGy-cm. . LIMITATIONS: None. FINDINGS: LUNGS AND PLEURA: Bibasilar bandlike atelectasis is present. Lungs are otherwise well inf lated and free of focal infiltrates. No pleural effusion. No pneumothorax. AORTA AND GREAT VESSELS: No aneurysm. Contrast bolus not optimized for the aorta. HEART: No pericardial effusion. No significant coronary artery calcifications. PULMONARY ARTERIES: No emboli visualized in the main pulmonary arteries or the segmental branches. HILAR AND MEDIASTINAL STRUCTURES: No identified masses or abnormal nodes. HARDWARE: None in the chest. UPPER ABDOMEN: Gallbladder contracted around multiple tiny stones THYROID AND OTHER SOFT TISSUES: No masses. No adenopathy. BONES: No acute or significant finding. Benign T11 hemangioma 3D MIPS: Confirm above findings. OTHER: No other significant finding. IMPRESSION: No CT angio evidence of acute pulmonary emboli. Bilateral posterior lung base atelectas is Gallstones in the gallbladder, no gross pericholecystic fluid. COMMENT: Quality ID # [id number]: Final reports with documentation of one or more dose reduction techniques (e.g., Automated exposure control, adjustment of the mA and/or kV according to patient size, use of iterative reconstruction technique) TECHNICAL DOCUMENTATION: JOB ID: [id number] [employer]- All Rights Reserved Reading location - IP/workstation name: [email or web address]
--- NOTE | 2018-01-01 12:46 | ER Document Report ---
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 Patient denies any chest pain shortness breath difficulty breathing. Patient notes both legs hurt but the right is more swollen than the left TRAVEL OUTSIDE OF THE [place] IN LAST 30 DAYS: No - HPI Onset: Last week Onset/Duration: Persistent Quality of pain: Sharp Severity: Moderate Pain Level: 3 Associated symptoms: Body/muscle aches Exacerbated by: Movement Relieved by: Denies Similar symptoms previously: Yes Recently seen / treated by doctor: Yes - Related Data Allergies/Adverse Reactions: Shellfish * [Shellfish] Allergy (Severe, Verified 09/24/17 17:30) Anaphylaxis Past Medical History - Social History Smoking Status: Never Smoker Cigarette use (# per day): No Chew tobacco use (# tins/day): No Smoking Education Provided: No Frequency of alcohol use: None Drug Abuse: None Family History: Reviewed & Not Pertinent, Other - Unable to obtain Patient has suicidal ideation: No Patient has homicidal ideation: No - Past Medical History Cardiac Medical History: Reports: Hx Hypercholesterolemia, Hx Pulmonary Embolism Neurological Medical History: Reports: Hx Seizures Renal/ Medical History: Denies: Hx Peritoneal Dialysis GI Medical History: Reports: Hx Gastroesophageal Reflux Disease Past Surgical History: Reports: Hx Neurologic Surgery - concussion with plate, Hx Orthopedic Surgery - 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 Denies recent illness. EENT: Denies eye, ear, throat, or mouth pain or symptoms. Denies nasal or sinus congestion or discharge. Denies throat, tongue, or mouth swelling or difficulty swallowing. CARDIOVASCULAR: Denies chest pain. Denies palpitations or racing or irregular heart beat. Denies ankle edema. RESPIRATORY: Denies cough, cold, or chest congestion. Denies shortness of breath, difficulty breathing, or wheezing. GASTROINTESTINAL: Denies abdominal pain or distention. Denies nausea, vomiting , or diarrhea. Denies blood in vomitus, stools, or per rectum. Denies black, tarry stools. Denies constipation. GENITOURINARY: Denies difficulty urinating, painful urination, burning, frequency, blood in urine, or discharge. MUSCULOSKELETAL: Admits to right leg pain swelling SKIN: Denies rash, lesions or sores. HEMATOLOGIC : Denies easy bruising or bleeding. LYMPHATIC: Denies swollen, enlarged glands. NEUROLOGICAL: Denies confusion or altered mental status. Denies passing out or loss of consciousness. Denies dizziness or lightheadedness. Denies headache. Denies weakness or paralysis or loss of use of either side. Denies problems with gait or speech. Denies sensory loss, numbness, or tingling. Denies seizures. PSYCHIATRIC: Denies anxiety or stress. Denies depression, suicidal ideation, or homicidal ideation. ALL OTHER SYSTEMS REVIEWED AND NEGATIVE. Dictation was performed using [employer] voice recognition software PHYSICAL EXAMINATION: GENERAL: Well-appearing, well-nourished and in no acute distress. HEAD: Atraumatic, normocephalic. EYES: Pupils equal round and reactive to light, extraocular movements intact, sclera anicteric, conjunctiva are normal. ENT: Nares patent, oropharynx clear without exudates. Moist mucous membranes. NECK: Normal range of motion, supple without lymphadenopathy LUNGS: Breath sounds clear to auscultation bilaterally and equal. No wheezes rales or rhonchi. HEART: Regular rate and rhythm without murmurs ABDOMEN: Soft, nontender, nondistended abdomen. No guarding, no rebound. No masses appreciated. Musculoskeletal: Right leg much larger than left, pulses intact NEUROLOGICAL: Cranial nerves grossly intact. Normal speech, normal gait. Normal sensory, motor exams PSYCH: Normal mood, normal affect. SKIN: Warm, Dry, normal turgor, no rashes or lesions noted. Physical Exam - Vital signs Vitals: Temp Pulse Resp BP Pulse Ox 97.5 F 87 18 106/90 H 96 01/01/18 10:22 01/01/18 10:22 01/01/18 10:22 01/01/18 10:22 01/01/18 10:22 Course - Re-evaluation Re-evalutation: I spoke with Dr. Samayoa who notes extensive DVT of the right lower extremity heparin has been ordered 01/01/18 12:41 [facility] paged, will await call back, they are on diversion [facility] paged they are on diversion [facility] paged 01/01/18 12:48 01/01/18 13:23 Dr Toro [facility] requests vascular involvement , Dr Goins vascular accepts to any bed. 01/01/18 13:28 pt stable for transfer - Vital Signs Vital signs: Temp Pulse Resp BP Pulse Ox 98.7 F 70 18 121/70 98 01/01/18 14:42 01/01/18 14:42 01/01/18 14:42 01/01/18 14:42 01/01/18 14:42 - Laboratory Result Diagrams: 01/01/18 10:39 01/01/18 11:27 Laboratory results interpreted by me: 01/01/18 01/01/18 10:39 11:27 RDW 15.0 H Potassium 5.1 H Glucose 120 H - Diagnostic Test Radiology reviewed: Image reviewed - extensive dvt noted on the doppler lower extremity, Reports reviewed Critical Care Note - Critical Care Note Total time excluding time spent on procedures (mins): 48 Comments: 48 minutes of critical care time spent in direct contact evaluating and reevaluating the patient, treating symptoms, reviewing labs and studies and speaking with family and consultants excluding any procedures Discharge - Discharge Clinical Impression: DVT (deep venous thrombosis) Qualifiers: DVT location: lower extremity Affected thrombotic vein of extremity: unspecified lower extremity distal vein Chronicity: acute Laterality: right Qualified Code(s): I82.4Z1 - Acute embolism and thrombosis of unspecified deep veins of right distal lower extremity Traumatic brain injury Qualifiers: Encounter type: sequela Loss of consciousness presence/duration: without LOC Qualified Code(s): S06.9X0S - Unspecified intracranial injury without loss of consciousness, sequela Condition: Stable Disposition: [facility]
[2018-01-01 14:05] LABS: APPEARANCE,URINE CLEAR; BILIRUBIN,URINE NEGATIVE (NEGATIVE); COLOR,URINE YELLOW; GLUCOSE, URINE NEGATIVE (NEGATIVE); KETONES,URINE NEGATIVE (NEGATIVE); LEUKOCYTE ESTERASE,URINE NEGATIVE (NEGATIVE); NITRITE,URINE NEGATIVE (NEGATIVE); PROTEIN,URINE NEGATIVE (NEGATIVE); URINE SPECIFIC GRAVITY 1.041; UROBILINOGEN,URINE NEGATIVE mg/dL (<2.0)
[2018-01-01 14:48] VITALS: BP 121/70
[2018-01-01] MEDS ORDERED: HEPARIN SOD (PORCINE) 1,000 UNIT/ML 10 ML VIAL IV PRN (15:40)
--- NOTE | 2018-01-02 08:08 | XCELERA REPORT ---
[address] [address] Lower Extremity Venous Evaluation Name: ALEXANDRA BUTLER Age: 62 yrs Gender: Male : 1955 Patient Status: Emergency Patient Location: ER Study Date: 01/01/2018 11:49 AM Procedure: Color flow and duplex imaging bilaterally of the veins of the lower extremities as well as the Common Femoral veins. Reason For Study: Hx DVT, B/L leg pain Ordering Physician: ALEXANDRA RAZA Performed By: Bhaskar Butler Right Sided Venous Evaluation Echogenic, enlarged veins with reduced compressibility from the Common Femoral vein to the infrageniculate level. No normal vein is seen above the CFV. Left Sided Venous Evaluation Normal vessel filling wall to wall, compression and augmentation as well as Colour flow down to the infrageniculate veins. Critical Findings Discussed with Dr Flanagan. Possibility of Ileo Femoral thrombosis and management discussed. Interpretation Summary Extensive DVT in the right lower extremity. : ALEXANDRA RAZA > Quentin Samayoa
== END 2018-01-01 15:00 | disposition short-term general hospital (02) ==
LOC: ER 10:14
DX: I82.4Z1 Acute embolism and thrombosis of unspecified deep veins of right distal lower extremity (principal); S06.9X0S Unspecified intracranial injury without loss of consciousness, sequela; M79.604 Pain in right leg; M79.89 Other specified soft tissue disorders; M79.605 Pain in left leg; M79.1 Myalgia; X58.XXXS Exposure to other specified factors, sequela
CPT/HCPCS: 99291; 96374; 36415; 85025; 85610; 85730; 80053; 81001; 93970 ×2; 71275; J1644

== ENCOUNTER 2018-05-06 15:20 | Emergency (ER) | payer OTHER ==
--- NOTE | 2018-05-06 16:45 | ER Document Report ---
HPI - HPI Pain Level: 3 Context: Patient is a 62-year-old male complaining of left elbow pain 1 day. Patient was walking into the [employer] store when he tripped on the curb and fell on his at outstretched left arm. Patient complains of pain in the elbow. Pain is aggravated with flexion extension. Patient has no previous injury to this arm. He denies any other injury. Did not hit his head and no loss of consciousness Associated Symptoms: None Exacerbated by: Movement Relieved by: Denies Similar symptoms previously: No Recently seen / treated by doctor: No - ROS Systems Reviewed and Negative: Yes All other systems reviewed and negative - CONSTITUTIONAL Constitutional: DENIES: Fever, Chills - MUSCULOSKELETAL Musculoskeletal: REPORTS: Extremity pain - left elbow pain Past Medical History - General Information source: Patient - Social History Smoking Status: Never Smoker Frequency of alcohol use: None Drug Abuse: None Lives with: Family Family History: Reviewed & Not Pertinent, Other - Unable to obtain Patient has suicidal ideation: No Patient has homicidal ideation: No - Past Medical History Cardiac Medical History: Reports: Hx Hypercholesterolemia, Hx Pulmonary Embolism Neurological Medical History: Reports: Hx Seizures Renal/ Medical History: Denies: Hx Peritoneal Dialysis GI Medical History: Reports: Hx Gastroesophageal Reflux Disease Past Surgical History: Reports: Hx Neurologic Surgery - concussion with plate, Hx Orthopedic Surgery - 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 IN LAST 30 DAYS: No - HEENT HEENT: Atraumatic, PERRLA - NECK Neck: Normal Inspection, Supple - RESPIRATORY Respiratory: Breath Sounds Normal, No Respiratory Distress - CARDIOVASCULAR Cardiovascular: Regular Rate, Regular Rhythm - MUSCULOSKELETAL/EXTREMETIES Musculoskeletal/Extremeties: Tender - Focal tenderness left epicondyle. No olecranon effusion. No abrasion, ecchymosis or erythema. Course - Re-evaluation Re-evalutation: 05/06/18 17:08 X-ray showing nondisplaced radial head fracture. These results were reviewed with the patient. Patient placed in a posterior elbow splint. Instructed to follow-up with Ortho tomorrow. Patient acknowledges understanding and is stable for discharge After performing a Medical Screening Examination, I estimate there is LOW risk for OPEN FRACTURE, COMPARTMENT SYNDROME, DEEP VENOUS THROMBOSIS, ACUTE TENDON RUPTURE, or NEUROVASCULAR INJURY thus I consider the discharge disposition reasonable. I have reevaluated this patient multiple times and no significant life threatening changes are noted. The patient and I have discussed the diagnosis and risks, and we agree with discharging home to closely follow-up with their primary doctor or the referral orthopedist with the understanding that symptoms and presentations can change. We also discussed returning to the Emergency Department immediately if new or worsening symptoms occur. We have discussed the symptoms which are most concerning (e.g., changing or worsening pain, numbness, weakness) that necessitate immediate return - Vital Signs Vital signs: Temp Pulse Resp BP Pulse Ox 99.0 F 68 16 142/92 H 98 05/06/18 15:32 05/06/18 15:32 05/06/18 15:32 05/06/18 15:32 05/06/18 15:32 Procedures - Immobilization left elbow Immobilizer type: Long arm posterior Performed by: PCT Post-Proc Neuro Vasc Exam: Normal Alignment checked and good: Yes Discharge - Discharge Clinical Impression: Radial head fracture Qualifiers: Encounter type: initial encounter Fracture type: closed Fracture alignment: nondisplaced Laterality: left Qualified Code(s): S52.125A - Nondisplaced fracture of head of left radius, initial encounter for closed fracture Condition: Stable Disposition: HOME, SELF-CARE Instructions: Radial Head Fracture ([facility]), Splint Pending Casting ([facility]), Sling to be Used ([facility]), Ice & Elevation ([facility]) Additional Instructions: You have a fracture of your radial head Wear your splint until seen by orthopedist Follow-up with orthopedist tomorrow for further evaluation and treatment Ice and elevate [facility] [address] [place] [address]
--- NOTE | 2018-05-06 17:03 | RADIOLOGY REPORT (SQ) ---
EXAM DESCRIPTION: ELBOW LEFT OVER 2 VIEWS COMPLETED DATE/TIME: 05/06/2018 4:48 pm REASON FOR STUDY: fell, left elbow COMPARISON: None. NUMBER OF VIEWS: Four views. TECHNIQUE: AP, lateral, and both oblique radiographic images acquired of the left elbow. LIMITATIONS: None. FINDINGS: MINERALIZATION: Normal. BONES: Nondisplaced fracture of the radial head. JOINT: Small joint effusion. SOFT TISSUES: No soft tissue swelling. No foreign body. OTHER: No other significant finding. IMPRESSION: Nondisplaced radial head fracture. TECHNICAL DOCUMENTATION: JOB ID: [id number] [employer]- All Rights Reserved Reading location - IP/workstation name: [email or web address]
[2018-05-06 17:55] VITALS: BP 136/77
== END 2018-05-06 18:06 | disposition home or self-care (01) ==
LOC: ER 15:20
DX: S52.125A Nondisplaced fracture of head of left radius, initial encounter for closed fracture (principal); W10.1XXA Fall (on)(from) sidewalk curb, initial encounter; Y93.89 Activity, other specified
CPT/HCPCS: 99283

== ENCOUNTER 2018-09-23 13:40 | Emergency (ER) | payer OTHER ==
[2018-09-23 14:48] LABS: ABSOLUTE EOSINOPHILS # (AUTO) 0.2 10^3/uL (0.0-0.6); ABSOLUTE MONOCYTES (AUTO) 0.9 10^3/uL (0.1-1.4); ABSOLUTE NEUT (AUTO) 4.4 10^3/uL (1.7-8.2); BASOPHILS % (AUTO) 0.3 % (0-2); HEMOGLOBIN 17.6 g/dL (13.5-17.0); LYMPHOCYTES % (AUTO) 35.2 % (13-45); MEAN CORPUSCULAR HEMOGLOBIN 30.9 pg (27.0-33.4); MEAN CORPUSCULAR HGB CONC 31.1 g/dL (32.0-36.0); MEAN CORPUSCULAR VOLUME 99 fl (80-97); MONOCYTES % (AUTO) 10.4 % (3-13); PLATELET COUNT 280 10^3/uL (150-450); RED BLOOD COUNT 5.69 10^6/uL (4.35-5.55); RED CELL DISTRIBUTION WIDTH 16.5 % (11.5-14.0); SEGMENTED NEUTROPHILS % (AUTO) 52.1 % (42-78); TOTAL CELLS COUNTED % (AUTO) 100 %; WHITE BLOOD COUNT 8.5 10^3/uL (4.0-10.5)
[2018-09-23 14:53] LABS: INTERNATIONAL RATION (INR) 0.98; PROTHROMBIN TIME 13.5 SEC (11.4-15.4)
[2018-09-23 14:56] LABS: HEMATOCRIT 56.6 % (37.9-51.0)
[2018-09-23 15:03] LABS: ALANINE AMINOTRANSFERASE 20 U/L (21-72); ALBUMIN 4.4 g/dL (3.5-5.0); ALKALINE PHOSPHATASE 57 U/L (38-126); ANION GAP 12 (5-19); ASPARTATE AMINO TRANSFERASE 29 U/L (17-59); BILIRUBIN,DIRECT 0.3 mg/dL (0.0-0.4); BILIRUBIN,TOTAL 0.6 mg/dL (0.2-1.3); BLOOD UREA NITROGEN 16 mg/dL (7-20); CARBON DIOXIDE 20 mmol/L (22-30); CHLORIDE 109 mmol/L (98-107); GLUCOSE 144 mg/dL (75-110); POTASSIUM 4.8 mmol/L (3.6-5.0); SODIUM 140.7 mmol/L (137-145); TOTAL PROTEIN 7.8 g/dL (6.3-8.2)
[2018-09-23] MEDS ORDERED: LEVETIRACETAM 1000 MG/NACL-ISO 1,000 MG/100 ML RTUPB IV ONE ×2 (15:03→16:15)
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
--- NOTE | 2018-09-23 16:43 | EKG REPORT ---
SEVERITY:- BORDERLINE ECG - SINUS TACHYCARDIA BORDERLINE T ABNORMALITIES, INFERIOR LEADS : Confirmed by: Frankie Brown MD 23-Sep-2018 16:42:28
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
[2018-09-23 20:25] VITALS: BP 116/75
== END 2018-09-23 20:48 | disposition home or self-care (01) ==
LOC: ER 13:40
DX: G40.909 Epilepsy, unspecified, not intractable, without status epilepticus (principal); V89.2XXA Person injured in unspecified motor-vehicle accident, traffic, initial encounter; Z79.01 Long term (current) use of anticoagulants; Z87.820 Personal history of traumatic brain injury; E78.00 Pure hypercholesterolemia, unspecified; Z86.711 Personal history of pulmonary embolism
CPT/HCPCS: 93005; 99285; 96365; 36415; 80177; 85025; 85610; 80053; 70450; 72125; 93010; J1953

== ENCOUNTER 2019-01-03 13:44 | Emergency (ER) | payer OTHER ==
[2019-01-03 13:55] VITALS: BP 134/82
--- NOTE | 2019-01-03 14:28 | ER Document Report ---
ED Medical Screen (RME) - General Chief Complaint: Leg Swelling Stated Complaint: LEG SWELLING Time Seen by Provider: 01/03/19 14:25 Mode of Arrival: Ambulatory Information source: Patient Notes: 63-year-old male presents to ED for complaint of bilateral lower extremity edema for several months. He states he started having severe pain in both thighs a couple days ago. 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 He states he has not seen his [facility] provider recently but does have a appointment coming up. He states the pain is severe and he needs to be evaluat ed now. I have greeted and performed a rapid initial assessment of this patient. A comprehensive ED assessment and evaluation of the patient, analysis of test results and completion of medical decision making process will be conducted by an additional ED providers. TRAVEL OUTSIDE OF THE U.S. IN LAST 30 DAYS: No - Related Data Allergies/Adverse Reactions: Shellfish * [Shellfish] Allergy (Severe, Verified 01/03/19 13:47) Anaphylaxis Past Medical History - Social History Frequency of alcohol use: None Drug Abuse: None - Past Medical History Cardiac Medical History: Reports: Hx Hypercholesterolemia, Hx Pulmonary Embolism Neurological Medical History: Reports: Hx Seizures Renal/ Medical History: Denies: Hx Peritoneal Dialysis GI Medical History: Reports: Hx Gastroesophageal Reflux Disease Past Surgical History: Reports: Hx Neurologic Surgery - concussion with plate, Hx Orthopedic Surgery - 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
--- NOTE | 2019-01-03 14:55 | RADIOLOGY REPORT (SQ) ---
EXAM DESCRIPTION: CHEST 2 VIEWS COMPLETED DATE/TIME: 01/03/2019 2:46 pm REASON FOR STUDY: lower extremity edema, history of DVT and PE COMPARISON: 04/03/2016. EXAM PARAMETERS: NUMBER OF VIEWS: two views TECHNIQUE: Digital Frontal and Lateral radiographic views of the chest acquired. RADIATION DOSE: NA LIMITATIONS: none FINDINGS: LUNGS AND PLEURA: No opacities, masses or pneumothorax. No pleural effusion. MEDIASTINUM AND HILAR STRUCTURES: No masses or contour abnormalities. HEART AND VASCULAR STRUCTURES: Heart normal size. No evidence for failure. BONES: No acute findings. HARDWARE: None in the chest. OTHER: No other significant finding. IMPRESSION: NO ACUTE RADIOGRAPHIC FINDING IN THE CHEST. TECHNICAL DOCUMENTATION: JOB ID: [id number] [employer]- All Rights Reserved Reading location - IP/workstation name: [email or web address]
[2019-01-03 15:05] LABS: ABSOLUTE EOSINOPHILS # (AUTO) 0.3 10^3/uL (0.0-0.6); ABSOLUTE LYMPHOCYTES (AUTO) 1.5 10^3/uL (0.5-4.7); ABSOLUTE MONOCYTES (AUTO) 0.9 10^3/uL (0.1-1.4); ABSOLUTE NEUT (AUTO) 4.2 10^3/uL (1.7-8.2); BASOPHILS % (AUTO) 0.5 % (0-2); EOSINOPHILS % (AUTO) 4.2 % (0-6); HEMATOCRIT 44.6 % (37.9-51.0); HEMOGLOBIN 15.1 g/dL (13.5-17.0); LYMPHOCYTES % (AUTO) 21.8 % (13-45); MEAN CORPUSCULAR HEMOGLOBIN 30.2 pg (27.0-33.4); MEAN CORPUSCULAR HGB CONC 33.9 g/dL (32.0-36.0); MEAN CORPUSCULAR VOLUME 89 fl (80-97); MONOCYTES % (AUTO) 13.2 % (3-13); PLATELET COUNT 282 10^3/uL (150-450); RED CELL DISTRIBUTION WIDTH 15.7 % (11.5-14.0); SEGMENTED NEUTROPHILS % (AUTO) 60.3 % (42-78); TOTAL CELLS COUNTED % (AUTO) 100 %; WHITE BLOOD COUNT 6.9 10^3/uL (4.0-10.5)
[2019-01-03 15:18] LABS: ALANINE AMINOTRANSFERASE 30 U/L (21-72); ALBUMIN 4.7 g/dL (3.5-5.0); ALKALINE PHOSPHATASE 77 U/L (38-126); ANION GAP 10 (5-19); ASPARTATE AMINO TRANSFERASE 29 U/L (17-59); BILIRUBIN,DIRECT 0.3 mg/dL (0.0-0.4); BILIRUBIN,TOTAL 0.7 mg/dL (0.2-1.3); BLOOD UREA NITROGEN 8 mg/dL (7-20); CALCIUM 10.1 mg/dL (8.4-10.2); CARBON DIOXIDE 27 mmol/L (22-30); CHLORIDE 104 mmol/L (98-107); GLUCOSE 89 mg/dL (75-110); POTASSIUM 4.4 mmol/L (3.6-5.0); SODIUM 140.8 mmol/L (137-145); TOTAL PROTEIN 8.6 g/dL (6.3-8.2)
[2019-01-03 15:21] LABS: APPEARANCE,URINE CLEAR; BILIRUBIN,URINE NEGATIVE (NEGATIVE); COLOR,URINE YELLOW; GLUCOSE, URINE NEGATIVE (NEGATIVE); KETONES,URINE NEGATIVE (NEGATIVE); LEUKOCYTE ESTERASE,URINE NEGATIVE (NEGATIVE); NITRITE,URINE NEGATIVE (NEGATIVE); PROTEIN,URINE NEGATIVE (NEGATIVE); UROBILINOGEN,URINE NEGATIVE mg/dL (<2.0)
[2019-01-03] MEDS ORDERED: APIXABAN 5 MG TABLET PO ONE (17:42)
--- NOTE | 2019-01-03 18:07 | ER Document Report ---
ED General - General Chief Complaint: Leg Swelling Stated Complaint: LEG SWELLING Time Seen by Provider: 01/03/19 14:25 Primary Care Provider: MELISSA,EMERSON [Primary Care Provider] - Follow up as needed Mode of Arrival: Ambulatory TRAVEL OUTSIDE OF THE [place] IN LAST 30 DAYS: No - HPI Patient complains to provider of: Leg swelling Notes: Patient coming in for evaluation of leg swelling. Patient has a history of DVTs in the past and is on Eliquis however has been out of his Eliquis for the last month. Patient states increase in swelling therefore came to the ER today as directed by the MS. Patient otherwise denies any chest pain abdominal pain denies any shortness of breath. Patient is resting company upon my evaluation. States he has been on Eliquis since 2012 - Related Data Allergies/Adverse Reactions: Shellfish * [Shellfish] Allergy (Severe, Verified 01/03/19 13:47) Anaphylaxis Past Medical History - General Information source: Patient - Social History Smoking Status: Never Smoker Frequency of alcohol use: None Drug Abuse: None Family History: Reviewed & Not Pertinent, Other - Unable to obtain Patient has suicidal ideation: No Patient has homicidal ideation: No - Past Medical History Cardiac Medical History: Reports: Hx Hypercholesterolemia, Hx Pulmonary Embolism Neurological Medical History: Reports: Hx Seizures Renal/ Medical History: Denies: Hx Peritoneal Dialysis GI Medical History: Reports: Hx Gastroesophageal Reflux Disease Past Surgical History: Reports: Hx Neurologic Surgery - concussion with plate, Hx Orthopedic Surgery - 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 saw acci dent., Other - Evidence a craniotomy - Immunizations Hx Diphtheria, Pertussis, Tetanus Vaccination: Yes Review of Systems - Review of Systems Constitutional: No symptoms reported EENT: No symptoms reported Cardiovascular: No symptoms reported Respiratory: No symptoms reported Gastrointestinal: No symptoms reported Genitourinary: No symptoms reported Male Genitourinary: No symptoms reported Musculoskeletal: Other - Leg swelling Skin: No symptoms reported Hematologic/Lymphatic: No symptoms reported Neurological/Psychological: No symptoms reported -: Yes All other systems reviewed and negative Physical Exam - Vital signs Vitals: Temp Pulse Resp BP Pulse Ox 98.0 F 80 16 134/82 H 97 01/03/19 13:53 01/03/19 13:53 01/03/19 13:53 01/03/19 13:53 01/03/19 13:53 Interpretation: Normal - General General appearance: Appears well, Alert - HEENT Head: Normocephalic, Atraumatic Eyes: Normal Pupils: PERRL - Respiratory Respiratory status: No respiratory distress Chest status: Nontender Breath sounds: Normal Chest palpation: Normal - Cardiovascular Rhythm: Regular Heart sounds: Normal auscultation Murmur: No - Abdominal Inspection: Normal Distension: No distension Bowel sounds: Normal Tenderness: Nontender Organomegaly: No organomegaly - Back Back: Normal, Nontender - Extremities General upper extremity: Normal inspection, Nontender, Normal color, Normal ROM, Normal temperature General lower extremity: Normal inspection, Nontender, Edema - Right swelling greater than left with right approximate 2+ pitting edema left 1+, Normal color, Normal ROM, Normal temperature, Normal weight bearing. No: Adeola's sign - Neurological Neuro grossly intact: Yes Cognition: Normal Orientation: AAOx4 Berenice Coma Scale Eye Opening: Spontaneous [place] Coma Scale Verbal: Oriented Berenice Coma Scale Motor: Obeys Commands Berenice Coma Scale Total: 15 Speech: Normal Motor strength normal: LUE, RUE, LLE, RLE Sensory: Normal - Psychological Associated symptoms: Normal affect, Normal mood - Skin Skin Temperature: Warm Skin Moisture: Dry Skin Color: Normal Course - Re-evaluation Re-evalutation: 01/03/19 18:02 Ultrasound does show signs of DVT however there is some blood floor around some of the clots possibly old. At this time patient has no signs of PE I did reconsult with her refrigerator assembler recommended putting the patient back on starting dose of Eliquis at 10 mg twice daily for the next 7 days and then dropping the patient down to 5 mg twice daily. Patient sees only the [facility] and has no other insurance. We did get our enterprise resource planner involved I will give the patient a dose of his Eliquis here. - Vital Signs Vital signs: Temp Pulse Resp BP Pulse Ox 98.0 F 80 16 134/82 H 97 01/03/19 13:53 01/03/19 13:53 01/03/19 13:53 01/03/19 13:53 01/03/19 13:53 - Laboratory Result Diagrams: 01/03/19 14:40 01/03/19 14:40 Laboratory results interpreted by me: 01/03/19 01/03/19 14:40 14:40 RDW 15.7 H Monocytes % 13.2 H Total Protein 8.6 H Discharge - Discharge Clinical Impression: DVT (deep venous thrombosis) Qualifiers: DVT location: lower extremity Chronicity: chronic Laterality: bilateral Condition: Good Disposition: HOME, SELF-CARE Instructions: DVT Outpatient Treatment ([facility]) Additional Instructions: Please make sure you take your Eliquis as prescribed. Please [facility] with the [facility]. Prescriptions: Apixaban [Eliquis 5 mg Tablet] 5 mg PO BID #60 tablet Apixaban [Eliquis 5 mg Tablet] 10 mg PO BID #14 tablet [facility] - Follow up in 1 week
--- NOTE | 2019-01-04 06:26 | RADIOLOGY REPORT (SQ) ---
EXAM DESCRIPTION: US EXTREMITY VEINS BILATERAL COMPLETED DATE/TME: 01/03/2019 14:25 CLINICAL HISTORY: 63 years, Male, lower extremity edema, history of DVT and PE COMPARISON: None. TECHNIQUE: Transverse longitudinal sonographic images of the bilateral lower extremity deep venous system LIMITATIONS: None. FINDINGS: Visible areas of thrombus formation associated with the bilateral common femoral veins extending to the popliteal veins bilaterally. Lack of normal compression and augmentation throughout, bilaterally. IMPRESSION: Findings positive for bilateral lower extremity DVT copyright 2010 [employer]- All Rights Reserved
== END 2019-01-03 18:40 | disposition home or self-care (01) ==
LOC: ER 13:44
DX: I82.513 Chronic embolism and thrombosis of femoral vein, bilateral (principal); T45.516A Underdosing of anticoagulants, initial encounter; Z91.128 Patient's intentional underdosing of medication regimen for other reason; Z91.14 Patient's other noncompliance with medication regimen; Z87.892 Personal history of anaphylaxis; Z91.013 Allergy to seafood; Z86.711 Personal history of pulmonary embolism
CPT/HCPCS: 36415; 71046; 80053; 81001; 85025; 93970; 99284

== ENCOUNTER → 2020-04-01 | Outpatient (CLI) | payer MEDICARE ==
--- NOTE | 2020-04-01 14:43 | RADIOLOGY REPORT (SQ) ---
EXAM DESCRIPTION: MRI HEAD COMBO IMAGES COMPLETED DATE/TIME: 04/01/2020 11:47 am REASON FOR STUDY: ABN BRAIN MRI R90.89 OT ABNORMAL FINDINGS ON DIAGNOSTIC IMAGING OF CNSL COMPARISON: 10/11/2016 TECHNIQUE: Multiplanar imaging includes noncontrasted T1, T2, FLAIR, Diffusion with ADC map and post gadolinium contrast T1 sequences. Images stored on PACS. CONTRAST TYPE AND DOSE: 15 mL Prohance. RENAL FUNCTION: Not indicated. ACR Type II contrast agent associated with few, if any, unconfounded cases of NSF LIMITATIONS: Motion artifact. FINDINGS: ANATOMY: No anomalies. Normal vascular flow voids. Pituitary fossa normal. CSF SPACES: Atrophy-induced prominence of CSF spaces and ventricles. CEREBRUM: Old right temporal lobe infarct. High-signal intensity lesions scattered throughout the wh ite matter on FLAIR imaging with distribution suggesting chronic micro-vascular ischemic change. No e vidence of hemorrhage, mass, extraaxial fluid collection or acute ischemic change. No enhancing lesio ns. POSTERIOR FOSSA: No signal alteration. No hemorrhage. No edema, masses, or mass effect. Internal shauna tory canals, cerebello-pontine angles, mastoids normal. No enhancing lesions. ORBITS: No masses. Globes normal. PARANASAL SINUSES: No fluid levels. Mucosa normal. DIFFUSION: Normal. No evidence of recent infarct. OTHER: No other significant finding. IMPRESSION: Motion artifact. Old right MCA territory infarct. No acute findings. EVIDENCE OF ACUTE STROKE: NO. TECHNICAL DOCUMENTATION: JOB ID: [id number] 2010 [employer]- All Rights Reserved Reading location - IP/workstation name: [email or web address]
== END ==
LOC: RAD 10:13
PROVIDERS: ATTEND Psychiatry & Neurology Neurology
DX: R90.89 Other abnormal findings on diagnostic imaging of central nervous system (principal)
CPT/HCPCS: 70553; A9576

== ENCOUNTER 2020-08-25 12:43 | Emergency (ER) | payer OTHER, MEDICARE ==
[2020-08-25] MEDS ORDERED: LORAZEPAM INJ 2 MG/1 ML VIAL IV ONE ×2 (12:53→14:20)
[2020-08-25] MEDS ORDERED: LEVETIRACETAM 1000 MG/NACL-ISO 1,000 MG/100 ML RTUPB IV ONE (12:53)
--- NOTE | 2020-08-25 13:10 | ER Document Report ---
ED General - General Chief Complaint: Seizure Stated Complaint: POSSIBLE SEIZURE Time Seen by Provider: 08/25/20 12:48 Primary Care Provider: MAN MARIO MD [NO LOCAL MD] - Follow up as needed Notes: Patient with a prior right-sided stroke left-sided weakness presents with shaking. He was shaving his face and using his right/good side. He started having shaking of the left. Normal blood sugar per EMS. History of seizures on Keppra. He remembers the entire thing and is unable to control it has been going on for over an hour now. TRAVEL OUTSIDE OF THE [place] IN LAST 30 DAYS: No - Related Data Allergies/Adverse Reactions: Shellfish * [Shellfish] Allergy (Severe, Verified 08/25/20 13:15) Anaphylaxis Past Medical History - General Information source: Patient - Social History Smoking Status: Unknown if Ever Smoked Family History: Reviewed & Not Pertinent, Other - Unable to obtain - Past Medical History Cardiac Medical History: Reports: Hx Hypercholesterolemia, Hx Pulmonary Embolism Neurological Medical History: Reports: Hx Seizures Renal/ Medical History: Denies: Hx Peritoneal Dialysis GI Medical History: Reports: Hx Gastroesophageal Reflux Disease Past Surgical History: Reports: Hx Neurologic Surgery - concussion with plate, Hx Orthopedic Surgery - 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 saw accident., Other - Evidence a craniotomy - Immunizations Hx Diphtheria, Pertussis, Tetanus Vaccination: Yes Review of Systems - Review of Systems Notes: REVIEW OF SYSTEMS GEN: Denies fever, chills, weight loss ENT: Denies sore throat, nasal discharge, ear pain EYES: Denies blurry vision, eye pain, discharge CV: Denies chest pain, palpitations, edema RESP: Denies cough, shortness of breath, wheezing GI: Denies abdominal pain, nausea, vomiting, diarrhea MSK: Denies joint pain/swelling, edema, SKIN: Denies rash, skin lesions LYMPH: Denies swollen glands/lymph nodes NEURO: Shaking PSYCH: Denies depression, suicidal or homicidal ideation PHYSICAL EXAMINATION General: This face is half shaven with the right side being clean-shaven the left being untouched Head: Atraumatic, normocephalic ENT: Mouth normal, oropharynx moist, no exudates or tonsillar enlargement Eyes: Conjunctiva normal, pupils equal, lids normal Neck: No JVD, supple, no guarding CVS: Normal rate, regular rhythm, no murmurs Resp: No resp distress, equal and normal breath sounds bilaterally GI: Nondistended, soft, no tenderness to palpation, no rebound or guarding Ext: No deformities, no edema, normal range of motion in upper and lower ext Back: No CVA or midline TTP Skin: No rash, warm Lymphatic: No lymphadeopathy noted Neuro: Awake, alert. Left-sided weakness and contractures with what looks like partial myoclonic status epilepticus left only awake and alert. Physical Exam - Vital signs Vitals: Resp Pulse Ox 19 95 08/25/20 13:55 08/25/20 13:55 Course - Re-evaluation Re-evalutation: 08/25/20 13:10 Partial status epilepticus likely focus of old stroke on the right Ativan Keppra load Should be safe even though he is on oral Keppra We will check basic labs and head CT given that he is on Eliquis 08/25/20 16:07 Patient terminated seizure quickly after Ativan. Had one further episode that I did not witness but gave Ativan by the time I went to see him it was gone he was back to baseline. Scan shows old findings labs are unremarkable. Discussed with his LIBRARY ASSISTANT at the bedside and asked her to have him follow-up with his neurologist by phone to decide if his Keppra dose needs adjusting but for now he has been loaded. I have discussed with the patient there likely diagnosis, aftercare plan, follow-up plans and my usual and customary return precautions. They verbalized understanding of this. - Vital Signs Vital signs: Temp Pulse Resp BP Pulse Ox 13 94 08/25/20 15:00 08/25/20 15:00 - Laboratory Results Result Diagrams: 08/25/20 12:58 08/25/20 12:58 Laboratory Results Interpreted: 08/25/20 12:58 Glucose 119 H Critical Laboratory Results Reviewed: No Critical Results - Radiology Results Critical Radiology Results Reviewed: No Critical Results Critical Care Note - Critical Care Note Total time excluding time spent on procedures (mins): 34 Comments: The above patient is critically ill. Not including procedures, but including direct re-evaluations, speaking with patient and/or consultants, interpreting results, and documenting, I spent the total amount of minute listed listed above on critical care time Discharge - Discharge Clinical Impression: Partial symptomatic epilepsy with complex partial seizures, intractable, with status epilepticus, Seizure Condition: Good Disposition: HOME, SELF-CARE Instructions: Seizure, Known Epileptic ([facility]) Additional Instructions: He is consult with your neurologist by phone to determine if you should increase your dose of Keppra Referrals: MAN MARIO MD [NO LOCAL MD] - Follow up as needed
[2020-08-25 13:15] LABS: ABSOLUTE EOSINOPHILS # (AUTO) 0.2 10^3/uL (0.0-0.6); ABSOLUTE LYMPHOCYTES (AUTO) 0.9 10^3/uL (0.5-4.7); ABSOLUTE MONOCYTES (AUTO) 0.7 10^3/uL (0.1-1.4); ABSOLUTE NEUT (AUTO) 4.9 10^3/uL (1.7-8.2); BASOPHILS % (AUTO) 0.6 % (0-2); EOSINOPHILS % (AUTO) 2.6 % (0-6); HEMATOCRIT 43.4 % (37.9-51.0); HEMOGLOBIN 14.5 g/dL (13.5-17.0); MEAN CORPUSCULAR HEMOGLOBIN 30.7 pg (27.0-33.4); MEAN CORPUSCULAR HGB CONC 33.4 g/dL (32.0-36.0); MEAN CORPUSCULAR VOLUME 92 fl (80-97); MONOCYTES % (AUTO) 10.7 % (3-13); PLATELET COUNT 262 10^3/uL (150-450); RED BLOOD COUNT 4.72 10^6/uL (4.35-5.55); SEGMENTED NEUTROPHILS % (AUTO) 72.1 % (42-78); TOTAL CELLS COUNTED % (AUTO) 100 %; WHITE BLOOD COUNT 6.8 10^3/uL (4.0-10.5)
[2020-08-25 13:30] LABS: ANION GAP 9 (5-19); BLOOD UREA NITROGEN 8 mg/dL (7-20); CALCIUM 9.9 mg/dL (8.4-10.2); CARBON DIOXIDE 27 mmol/L (22-30); CHLORIDE 104 mmol/L (98-107); GLUCOSE 119 mg/dL (75-110)
--- NOTE | 2020-08-25 14:11 | RADIOLOGY REPORT (SQ) ---
EXAM DESCRIPTION: CT HEAD WITHOUT IMAGES COMPLETED DATE/TIME: 08/25/2020 1:38 pm REASON FOR STUDY: seizure COMPARISON: 04/01/20. TECHNIQUE: Axial images acquired through the brain without intravenous contrast. Images reviewed wi th bone, brain and subdural windows. Additional sagittal and coronal reconstructions were generated. Images stored on PACS. All CT scanners at this facility use dose modulation, iterative reconstruction, and/or weight based d osing when appropriate to reduce radiation dose to as low as reasonably achievable (ALARA). [facility]: Dose Right [facility]: CareDose [facility]: Dose Right [facility]: Teradose 4D [facility]: PushPage RADIATION DOSE: CT Rad equipment meets quality standard of care and radiation dose reduction techniq ues were employed. CTDIvol: 53.2 mGy. DLP: 1070 mGy-cm.mGy. LIMITATIONS: None. FINDINGS: VENTRICLES: Prominence of the ventricular system with ex vacuo dilation of the right later al ventricle, stable. CEREBRUM: No masses. No hemorrhage. No midline shift. Stable sequelae from prior large right MCA t erritory infarct with extensive encephalomalacia. Stable additional Areas of low density in the whit e matter most likely due to chronic micro-vascular ischemic change. No evidence for acute infarction . CEREBELLUM: No masses. No hemorrhage. No alteration of density. No evidence for acute infarction. EXTRAAXIAL SPACES: Age-related involutional change. No fluid collections. No masses. ORBITS AND GLOBE: No intra- or extraconal masses. Normal contour of globe without masses. CALVARIUM: No acute fracture. Evidence of prior right frontoparietal craniectomy with prostheses pre sent. PARANASAL SINUSES: No fluid or mucosal thickening. SOFT TISSUES: No mass or hematoma. OTHER: No other significant finding. IMPRESSION: No definite evidence of acute intracranial process. Sequelae from prior large right MCA territory infarct and right-sided craniectomy. EVIDENCE OF ACUTE STROKE: NO. TECHNICAL DOCUMENTATION: JOB ID: [id number] Quality ID # [id number]: Final reports with documentation of one or more dose reduction techniques (e.g., Au tomated exposure control, adjustment of the mA and/or kV according to patient size, use of iterative reconstruction technique) 2010 [employer]- All Rights Reserved Reading location - IP/workstation name: [email or web address]
[2020-08-25 17:14] VITALS: BP 127/88
== END 2020-08-25 17:14 | disposition home or self-care (01) ==
LOC: ER 12:43
DX: G40.211 Localization-related (focal) (partial) symptomatic epilepsy and epileptic syndromes with complex partial seizures, intractable, with status epilepticus (principal); M62.81 Muscle weakness (generalized); Z79.899 Other long term (current) drug therapy
CPT/HCPCS: 96376; 99284; 96375; 96365; 36415; 85025; 80048; 70450; J2060; J1953